=== PATIENT | female | born 1975 | race Caucasian/White ===

== ENCOUNTER 2016-09-05 14:41 | Inpatient (IN) ==
[2016-09-05 16:03] LABS: Amphetamine Screen,Urine Negative ng/mL (Cutoff=1000); Barbiturate Screen,Urine Negative ng/mL (Cutoff=200); Benzodiazepines Screen,Urine Positive ng/mL (Cutoff=200); Cannabinoid Screen,Urine Positive ng/mL (Cutoff = 50); Cocaine Screen,Urine Negative ng/mL (Cutoff= 300); Opiate Screen,Urine Negative ng/mL (Cutoff=300); Phencyclidine Screen,Urine Negative ng/mL (Cutoff=25)
[2016-09-05 16:09] LABS: Bilirubin,Urine Negative (Negative); Blood,Urine Trace (Negative); Clarity,Urine Clear (Clear); Color,Urine Yellow (Yellow); Glucose,Urine (UA) Normal (Normal); Ketones,Urine Negative (Negative); Leukocyte Esterase,Urine Negative (Negative); Nitrite,Urine Negative (Negative); PH,Urine 6.5 pH Units (5.0-8.0); Protein,Urine Trace mg/dL (Neg-Trace); Specific Gravity,Urine 1.017 (1.010-1.025); Urobilinogen,Urine Normal (Normal)
[2016-09-05 16:11] LABS: Bacteria,Urine Few per hpf (None-Few); Hyaline Casts,Urine None Seen per lpf (None-Few); Squamous Epithelial Cell,Urine Many per lpf (None-Few); WBC,Urine 0-3 per hpf (0-3)
[2016-09-05] MEDS ORDERED: Ketorolac 30 MG/ML VIAL IVP ONE (16:11)
[2016-09-05] MEDS ORDERED: 0.9 % Sodium Chloride 1,000 ML IVC ONE (16:11)
--- NOTE | 2016-09-05 16:17 | Emergency Department Note ---
Disposition Clinical Impression: Suicidal ideation, Facial cellulitis, Dental caries Disposition: Still a Patient Condition: Good Referrals: Eufemia Martinez, [employer] [Primary Care Provider] - Forms: ED Satisfaction Letter Time of Disposition: 22:34 Dental HPI - General Chief complaint: ED Psychiatric Symptoms Stated complaint: SI/dental pain Time Seen by Provider: 09/05/16 15:29 Source: patient Limitations: no limitations Nursing Notes Reviewed: Yes Vital Signs Reviewed: Yes - History of Present Illness HPI Narrative: 41 year old female who ahs been expeiencing left sided facial pain secondary to a denal abscsess which she has been trying to treat for the past 7 days with PO antbiotics. She finished her course and states that it is getting worse and she is having chills at home and becuse she hasnt been able to take her pysch medications she is now becoming more suicidal. Margienet states that she is also having difficutlt opening her mouth completely because of the pain and the swelling, although her tongue does not feel swollen to her and she is handling her secretions appropiately at bedside. Patient states that she could not get into her dentist for the removal and was advied to come to the ED for futher managment and possible CT of her face and more anitbiotic therapy. STates that is isl ocated on the left side of her left frontal jaw and tracks into her neck and is now causing her to have left ear pain. - Related Data Allergies Allergy/AdvReac Type Severity Reaction Status Date / Time hydrocodone Allergy Hives Verified 04/17/16 11:51 Penicillins [PCN] Allergy Hives Verified 06/18/15 13:18 Constitutional: Reports: chills. Denies: fever, weakness, weight change Eyes: Denies: eye pain, eye discharge, vision change ENT ED: Reports: ear pain, throat pain, dental pain. Denies: hearing loss, epistaxis, congestion, dysphagia Cardiovascular: Denies: chest pain, palpitations, dyspnea on exertion, edema, syncope Respiratory: Denies: cough, dyspnea, wheezes, hemoptysis, stridor Gastrointestinal: Denies: abdominal pain, nausea, vomiting, diarrhea, constipation, hematemesis, melena, hematochezia Genitourinary: Denies: dysuria, frequency, hematuria, discharge Musculoskeletal: Denies: back pain, arthralgia, myalgia Integumentary: Denies: rash, abrasion, lesions Neurological: Denies: headache, weakness, numbness, paresthesias, confusion, abnormal gait, vertigo Psychiatric: Reports: anxiety, depression, suicidal thoughts. Denies: homicidal thoughts, auditory hallucinations, visual hallucinations Past Medical History - Past Medical History Medical history: Reports: fibromyalgia, hypertension, RA Psychiatric history: Reports: anxiety, depression - Social History Smoking Status: Current every day smoker Smokeless Tobacco Status: No Alcohol use: Reports: none Drug use: Reports: none Physical Exam - General Limitations: no limitations General appearance: alert - Head Head exam: atraumatic, normocephalic, normal inspection - Eye Eye exam: Present: normal appearance, PERRL, EOMI - Expanded Eye Exam Pupils: Left: reactive - ENT ENT exam: normal exam, normal oropharynx, mucous membranes moist - Expanded ENT Exam External ear exam: Present: normal external inspection TM/Canal: Hemotympanum: Negative Nose exam: negative: nasal deviation, crepitus, septal hematoma Nasal speculum exam: Bilateral: normal Nose/Mouth: 1 - flunctuant pocket, with gingival swelling which tracks into back towards the left ear and under the chin. Mouth exam: Present: normal external inspection Teeth exam: Present: dental caries, fractured tooth #, dental tenderness #, gingival swelling 1 - Fractured, Dental Tenderness, Other (gingival swelling) Throat exam: Present: normal inspection - Neck Neck exam: Present: normal inspection, full ROM, trachea midline. Absent: meningismus, lymphadenopathy, thyromegaly - Chest Chest inspection: Present: normal inspection, symmetric chest wall rise - Respiratory Respiratory exam: Present: normal lung sounds bilaterally - Cardiovascular Cardiovascular exam: Present: normal rhythm, tachycardia, normal heart sounds - Abdominal Exam Abdominal exam: Present: soft, Non-Tender. Absent: tenderness, distention, guarding, rebound, rigidity - Extremities Exam Extremities exam: Present: normal inspection, full ROM. Absent: tenderness, pedal edema - Expanded Upper Extremity Exam Shoulder exam: Present: normal inspection, full ROM Arm exam: Present: normal inspection, full ROM Elbow exam: Present: normal inspection, full ROM Forearm/Wrist exam: Present: normal inspection, full ROM Hand exam: Present: normal inspection, full ROM Vascular exam: Normal: capillary refill, radial pulse - Expanded Lower Extremity Exam Hip/Pelvis exam: Present: normal inspection, full ROM Upper leg exam: Present: normal inspection, full ROM Knee exam: Present: normal inspection, full ROM Lower leg exam: Present: normal inspection, full ROM Ankle exam: Present: normal inspection, full ROM Foot/toe exam: Present: normal inspection, full ROM Neurovascular/Tendon exam: Absent: motor deficit, sensory deficit, tendon deficit - Back Exam Back exam: Present: normal inspection, full ROM. Absent: tenderness - Neurological Exam Neurological exam: Present: alert, oriented X3 - Expanded Neurological Exam Patient oriented to: Present: person, place, time Coma Scale Eye Opening: Spontaneous Coma Scale Motor Response: Obeys Commands Coma Scale Verbal Response: Oriented Coma Scale Total: 15 - Psychiatric Psychiatric exam: Present: depressed, anxious, suicidal ideation - Skin Skin exam: Present: warm, dry, intact, normal color Course Course Narrative: we will do a CT face with IV contrast and pysch workup. - Reevaluation(s) Reevaluation #1: updated patient on results. Patient states that she can tolerate PO at this time. WE will finish the IV ABX and do a swallow test. IF she can tolerate PO than we will switch to PO meds and consult 1A. IF she cannot then we will admit to the medicine service for facial cellulitis. Time: 19:53 Reevaluation #2: patine is medically cleared. able to swallow pills. 1A consulted. Time: 21:08 Reevaluation #3: will sign patient out to the night team. Likely patient will be admitted but does not have a bed at this facility. She will likely need to be transferred out to another facility. She has otherwise been stable and cooperate in the ED. Plan is to follow pysch reccs. She will need to continue azithro, flagyl therapy PO. Time: 22:34 Vital Signs Temperature 98.2 F 09/05/16 14:50 Pulse Rate 104 09/05/16 14:50 Respiratory Rate 18 09/05/16 14:50 Blood Pressure 118/84 09/05/16 14:50 O2 Sat by Pulse Oximetry 99 09/05/16 14:50 Temperature 98.2 F 09/05/16 14:50 Pulse Rate 78 09/05/16 19:52 Respiratory Rate 20 09/05/16 19:52 Blood Pressure 103/67 09/05/16 19:52 O2 Sat by Pulse Oximetry 96 09/05/16 19:52 Oxygen Delivery Oxygen Delivery Room Air Dental/Oral - Lab Data Result diagrams: 09/05/16 16:18 09/05/16 16:18 Lab Results 09/05/16 09/05/16 09/05/16 Range/Units 15:44 15:45 15:45 WBC (4.3-11.1) K/mcL RBC (3.82-4.97) M/mcL Hgb (11.5-15.4) g/dL Hct (35.3-44.9) % MCV (83.0-100.0) fL MCH (28.0-33.3) pg MCHC (31.6-35.5) g/dL RDW (11.5-14.5) % Plt Count (140-400) K/mcL MPV (9.4-12.4) fL Immature Gran % (0-4) % Seg Neutrophils % % Lymphocytes % % Monocytes % % Eosinophils % % Basophils % % Neutrophils # (1.6-8.9) K/mcL Lymphocytes # (0.6-4.6) K/mcL Monocytes # (0.0-1.3) K/mcL Eosinophils # (0.0-0.6) K/mcL Basophils # (0.0-0.2) K/mcL Immature Plt Fraction (1.1-6.1) % Sodium (136-145) mEq/L Potassium (3.5-4.5) mEq/L Chloride (98-109) mEq/L Carbon Dioxide (19-29) mEq/L BUN (7-20) mg/dL Creatinine (0.57-1.11) mg/dL Est GFR ( Amer) (> 60) Est GFR (Non-Af Amer) (> 60) BUN/Creatinine Ratio (6-26) Glucose (70-99) mg/dL Calculated Osmolality (280-300) Calcium (8.6-10.8) mg/dL Urine Color Yellow (Yellow) Urine Clarity Clear (Clear) Urine pH 6.5 (5.0-8.0) pH Units Ur Specific [place] 1.017 (1.010-1.025) Urine Protein Trace (Neg-Trace) mg/dL Urine Glucose (UA) Normal (Normal) mg/dL Urine Ketones Negative (Negative) mg/dL Urine Blood Trace H (Negative) Urine Nitrite Negative (Negative) Urine Bilirubin Negative (Negative) Urine Urobilinogen Normal (Normal) mg/dL Ur Leukocyte Esterase Negative (Negative) Urine Microscopic RBC 3-5 H (0-3) per hpf Urine Microscopic WBC 0-3 (0-3) per hpf Ur Squamous Epith Cells Many H (None-Few) per lpf Urine Bacteria Few (None-Few) per hpf Hyaline Casts None Seen (None-Few) per lpf Urine Test Negative (Negative) Salicylates (15-30) mg/dL Urine Opiates Screen Negative (Yhluqh=151) ng/mL Acetaminophen (10-30) mcg/mL Ur Barbiturates Screen Negative (Csrhqv=605) ng/mL Ur Phencyclidine Scrn Negative (Cutoff=25) ng/mL Ur Amphetamines Screen Negative (Ofteol=9128) ng/mL U Benzodiazepines Scrn Positive H (Fhhigx=678) ng/mL Urine Cocaine Screen Negative (Cutoff= 300) ng/mL U Marijuana (THC) Screen Positive H (Cutoff = 50) ng/mL Ethyl Alcohol (0-10) mg/dL 09/05/16 09/05/16 Range/Units 16:18 16:18 WBC 13.9 H (4.3-11.1) K/mcL RBC 4.59 (3.82-4.97) M/mcL Hgb 14.6 (11.5-15.4) g/dL Hct 42.6 (35.3-44.9) % MCV 92.8 (83.0-100.0) fL MCH 31.8 (28.0-33.3) pg MCHC 34.3 (31.6-35.5) g/dL RDW 13.6 (11.5-14.5) % Plt Count 319 (140-400) K/mcL MPV 9.9 (9.4-12.4) fL Immature Gran % 0.4 (0-4) % Seg Neutrophils % 70.7 % Lymphocytes % 20.4 % Monocytes % 6.9 % Eosinophils % 1.2 % Basophils % 0.4 % Neutrophils # 9.8 H (1.6-8.9) K/mcL Lymphocytes # 2.8 (0.6-4.6) K/mcL Monocytes # 1.0 (0.0-1.3) K/mcL Eosinophils # 0.2 (0.0-0.6) K/mcL Basophils # 0.1 (0.0-0.2) K/mcL Immature Plt Fraction 4.5 (1.1-6.1) % Sodium 139 (136-145) mEq/L Potassium 3.9 (3.5-4.5) mEq/L Chloride 103 (98-109) mEq/L Carbon Dioxide 25 (19-29) mEq/L BUN 8 (7-20) mg/dL Creatinine 0.87 (0.57-1.11) mg/dL Est GFR ( Amer) > 60 (> 60) Est GFR (Non-Af Amer) > 60 (> 60) BUN/Creatinine Ratio 9 (6-26) Glucose 119 H (70-99) mg/dL Calculated Osmolality 283 (280-300) Calcium 10.0 (8.6-10.8) mg/dL Urine Color (Yellow) Urine Clarity (Clear) Urine pH (5.0-8.0) pH Units Ur Specific [place] (1.010-1.025) Urine Protein (Neg-Trace) mg/dL Urine Glucose (UA) (Normal) mg/dL Urine Ketones (Negative) mg/dL Urine Blood (Negative) Urine Nitrite (Negative) Urine Bilirubin (Negative) Urine Urobilinogen (Normal) mg/dL Ur Leukocyte Esterase (Negative) Urine Microscopic RBC (0-3) per hpf Urine Microscopic WBC (0-3) per hpf Ur Squamous Epith Cells (None-Few) per lpf Urine Bacteria (None-Few) per hpf Hyaline Casts (None-Few) per lpf Urine Test (Negative) Salicylates < 5.0 L (15-30) mg/dL Urine Opiates Screen (Itefon=406) ng/mL Acetaminophen < 1.0 L (10-30) mcg/mL Ur Barbiturates Screen (Gwoceo=880) ng/mL Ur Phencyclidine Scrn (Cutoff=25) ng/mL Ur Amphetamines Screen (Ibnovh=8757) ng/mL U Benzodiazepines Scrn (Nsjcwx=601) ng/mL Urine Cocaine Screen (Cutoff= 300) ng/mL U Marijuana (THC) Screen (Cutoff = 50) ng/mL Ethyl Alcohol < 10 (0-10) mg/dL
[2016-09-05 16:24] LABS: Basophils # 0.1 K/mcL (0.0-0.2); Basophils % 0.4 %; Eosinophils # 0.2 K/mcL (0.0-0.6); Eosinophils % 1.2 %; Hematocrit 42.6 % (35.3-44.9); Hemoglobin 14.6 g/dL (11.5-15.4); Immature Granulocytes % 0.4 % (0-4); Immature Platelets 4.5 % (1.1-6.1); Lymphocytes # 2.8 K/mcL (0.6-4.6); Lymphocytes % 20.4 %; Mean Corpuscular HGB Conc 34.3 g/dL (31.6-35.5); Mean Corpuscular Hemoglobin 31.8 pg (28.0-33.3); Mean Corpuscular Volume 92.8 fL (83.0-100.0); Mean Platelet Volume 9.9 fL (9.4-12.4); Monocytes % 6.9 %; Neutrophils # 9.8 K/mcL (1.6-8.9); Platelet Count 319 K/mcL (140-400); Red Blood Count 4.59 M/mcL (3.82-4.97); Red Cell Distribution Width 13.6 % (11.5-14.5); Segmented Neutrophils % 70.7 %
[2016-09-05 16:38] LABS: BUN/Creatinine Ratio 9 (6-26); Blood Urea Nitrogen 8 mg/dL (7-20); Carbon Dioxide 25 mEq/L (19-29); Glucose 119 mg/dL (70-99); eGFR For African Americans > 60 (> 60); eGFR For Non-African Americans > 60 (> 60)
--- NOTE | 2016-09-05 16:40 | Emergency Department Note ---
Disposition Clinical Impression: Suicidal ideation, Facial cellulitis, Dental caries Disposition: Still a Patient Condition: Good Referrals: Eufemia Martinez [employer] [Primary Care Provider] - Forms: ED Satisfaction Letter General Adult HPI - General Chief complaint: ED Psychiatric Symptoms Stated complaint: SI/dental pain Time Seen by Provider: 09/05/16 15:29 Source: patient Limitations: no limitations - History of Present Illness Pain Scale: 10 - Related Data Allergies Allergy/AdvReac Type Severity Reaction Status Date / Time hydrocodone Allergy Hives Verified 04/17/16 11:51 Penicillins [PCN] Allergy Hives Verified 06/18/15 13:18 Constitutional: Reports: chills. Denies: fever, weakness, weight change Eyes: Denies: eye pain, eye discharge, vision change ENT ED: Reports: ear pain, throat pain, dental pain. Denies: hearing loss, epistaxis, congestion, dysphagia Cardiovascular: Denies: chest pain, palpitations, dyspnea on exertion, edema, syncope Respiratory: Denies: cough, dyspnea, wheezes, hemoptysis, stridor Gastrointestinal: Denies: abdominal pain, nausea, vomiting, diarrhea, constipation, hematemesis, melena, hematochezia Genitourinary: Denies: dysuria, frequency, hematuria, discharge Musculoskeletal: Denies: back pain, arthralgia, myalgia Integumentary: Denies: rash, abrasion, lesions Neurological: Denies: headache, weakness, numbness, paresthesias, confusion, abnormal gait, vertigo Psychiatric: Reports: anxiety, depression, suicidal thoughts. Denies: homicidal thoughts, auditory hallucinations, visual hallucinations Past Medical History - Past Medical History Medical history: Reports: fibromyalgia, hypertension, RA Psychiatric history: Reports: anxiety, depression - Social History Smoking Status: Current every day smoker Smokeless Tobacco Status: No Alcohol use: Reports: none Drug use: Reports: none Physical Exam - General Limitations: no limitations General appearance: alert Course - Reevaluation(s) Reevaluation #1: I saw the patient with the resident, Dr. Knight. Patient presents with 2 problems. First problem is a dental abscess that she has been dealing with. It has not responded to a course of clindamycin. She is allergic to penicillin. She states that she has been off her psych medicines as well and now she feels depressed and suicidal. Examining her face she has a lot of swelling. She does not have any of her teeth on the left hand side until you get to the lateral incisor and that happens to be a tooth that hurts. That is where the bulk of the abscess is. She has full range of motion in the neck. We will work her up to evaluate the extent of this abscess. Once she is medically cleared and will talk to psychiatry. Time: 16:40 Vital Signs Temperature 98.2 F 09/05/16 14:50 Pulse Rate 104 09/05/16 14:50 Respiratory Rate 18 09/05/16 14:50 Blood Pressure 118/84 09/05/16 14:50 O2 Sat by Pulse Oximetry 99 09/05/16 14:50 Temperature 98.2 F 09/05/16 14:50 Pulse Rate 78 09/05/16 19:52 Respiratory Rate 20 09/05/16 19:52 Blood Pressure 103/67 09/05/16 19:52 O2 Sat by Pulse Oximetry 96 09/05/16 19:52 Oxygen Delivery Oxygen Delivery Room Air Medical Decision Making - Lab Data Result diagrams: 09/05/16 16:18 09/05/16 16:18 Lab Results 09/05/16 09/05/16 09/05/16 Range/Units 15:44 15:45 15:45 WBC (4.3-11.1) K/mcL RBC (3.82-4.97) M/mcL Hgb (11.5-15.4) g/dL Hct (35.3-44.9) % MCV (83.0-100.0) fL MCH (28.0-33.3) pg MCHC (31.6-35.5) g/dL RDW (11.5-14.5) % Plt Count (140-400) K/mcL MPV (9.4-12.4) fL Immature Gran % (0-4) % Seg Neutrophils % % Lymphocytes % % Monocytes % % Eosinophils % % Basophils % % Neutrophils # (1.6-8.9) K/mcL Lymphocytes # (0.6-4.6) K/mcL Monocytes # (0.0-1.3) K/mcL Eosinophils # (0.0-0.6) K/mcL Basophils # (0.0-0.2) K/mcL Immature Plt Fraction (1.1-6.1) % Sodium (136-145) mEq/L Potassium (3.5-4.5) mEq/L Chloride (98-109) mEq/L Carbon Dioxide (19-29) mEq/L BUN (7-20) mg/dL Creatinine (0.57-1.11) mg/dL Est GFR ( Amer) (> 60) Est GFR (Non-Af Amer) (> 60) BUN/Creatinine Ratio (6-26) Glucose (70-99) mg/dL Calculated Osmolality (280-300) Calcium (8.6-10.8) mg/dL Urine Color Yellow (Yellow) Urine Clarity Clear (Clear) Urine pH 6.5 (5.0-8.0) pH Units Ur Specific [place] 1.017 (1.010-1.025) Urine Protein Trace (Neg-Trace) mg/dL Urine Glucose (UA) Normal (Normal) mg/dL Urine Ketones Negative (Negative) mg/dL Urine Blood Trace H (Negative) Urine Nitrite Negative (Negative) Urine Bilirubin Negative (Negative) Urine Urobilinogen Normal (Normal) mg/dL Ur Leukocyte Esterase Negative (Negative) Urine Microscopic RBC 3-5 H (0-3) per hpf Urine Microscopic WBC 0-3 (0-3) per hpf Ur Squamous Epith Cells Many H (None-Few) per lpf Urine Bacteria Few (None-Few) per hpf Hyaline Casts None Seen (None-Few) per lpf Urine Test Negative (Negative) Salicylates (15-30) mg/dL Urine Opiates Screen Negative (Kggawg=823) ng/mL Acetaminophen (10-30) mcg/mL Ur Barbiturates Screen Negative (Mrjhhs=513) ng/mL Ur Phencyclidine Scrn Negative (Cutoff=25) ng/mL Ur Amphetamines Screen Negative (Iebbcn=9452) ng/mL U Benzodiazepines Scrn Positive H (Ehgqlm=716) ng/mL Urine Cocaine Screen Negative (Cutoff= 300) ng/mL U Marijuana (THC) Screen Positive H (Cutoff = 50) ng/mL Ethyl Alcohol (0-10) mg/dL 17 09/05/16 Range/Units 16:18 16:18 WBC 13.9 H (4.3-11.1) K/mcL RBC 4.59 (3.82-4.97) M/mcL Hgb 14.6 (11.5-15.4) g/dL Hct 42.6 (35.3-44.9) % MCV 92.8 (83.0-100.0) fL MCH 31.8 (28.0-33.3) pg MCHC 34.3 (31.6-35.5) g/dL RDW 13.6 (11.5-14.5) % Plt Count 319 (140-400) K/mcL MPV 9.9 (9.4-12.4) fL Immature Gran % 0.4 (0-4) % Seg Neutrophils % 70.7 % Lymphocytes % 20.4 % Monocytes % 6.9 % Eosinophils % 1.2 % Basophils % 0.4 % Neutrophils # 9.8 H (1.6-8.9) K/mcL Lymphocytes # 2.8 (0.6-4.6) K/mcL Monocytes # 1.0 (0.0-1.3) K/mcL Eosinophils # 0.2 (0.0-0.6) K/mcL Basophils # 0.1 (0.0-0.2) K/mcL Immature Plt Fraction 4.5 (1.1-6.1) % Sodium 139 (136-145) mEq/L Potassium 3.9 (3.5-4.5) mEq/L Chloride 103 (98-109) mEq/L Carbon Dioxide 25 (19-29) mEq/L BUN 8 (7-20) mg/dL Creatinine 0.87 (0.57-1.11) mg/dL Est GFR ( Amer) > 60 (> 60) Est GFR (Non-Af Amer) > 60 (> 60) BUN/Creatinine Ratio 9 (6-26) Glucose 119 H (70-99) mg/dL Calculated Osmolality 283 (280-300) Calcium 10.0 (8.6-10.8) mg/dL Urine Color (Yellow) Urine Clarity (Clear) Urine pH (5.0-8.0) pH Units Ur Specific [place] (1.010-1.025) Urine Protein (Neg-Trace) mg/dL Urine Glucose (UA) (Normal) mg/dL Urine Ketones (Negative) mg/dL Urine Blood (Negative) Urine Nitrite (Negative) Urine Bilirubin (Negative) Urine Urobilinogen (Normal) mg/dL Ur Leukocyte Esterase (Negative) Urine Microscopic RBC (0-3) per hpf Urine Microscopic WBC (0-3) per hpf Ur Squamous Epith Cells (None-Few) per lpf Urine Bacteria (None-Few) per hpf Hyaline Casts (None-Few) per lpf Urine Test (Negative) Salicylates < 5.0 L (15-30) mg/dL Urine Opiates Screen (Ljxkzc=178) ng/mL Acetaminophen < 1.0 L (10-30) mcg/mL Ur Barbiturates Screen (Uiuaqi=452) ng/mL Ur Phencyclidine Scrn (Cutoff=25) ng/mL Ur Amphetamines Screen (Vnluaa=2734) ng/mL U Benzodiazepines Scrn (Vwzfap=287) ng/mL Urine Cocaine Screen (Cutoff= 300) ng/mL U Marijuana (THC) Screen (Cutoff = 50) ng/mL Ethyl Alcohol < 10 (0-10) mg/dL Attestation Statement - Attestation Attestation: I, Dr. Rodriguez, examined this patient [id number] and my medical decision- making was reviewed with Dr. Knight, Resident Physician. I agree with the documented findings, disposition and treatment plan as described except to the extent set forth below. Please see my progress notes for details.
[2016-09-05 16:42] LABS: Acetaminophen < 1.0 mcg/mL (10-30); Ethanol < 10 mg/dL (0-10); Salicylate < 5.0 mg/dL (15-30)
[2016-09-05] MEDS ORDERED: MetroNIDAZOLE 500 MG/100 ML 500 MG/100 ML BAG IVPB ONE (17:11)
[2016-09-05] MEDS ORDERED: Azithromycin 500 MG in D5% in Water 250 ML IVPB ONE (17:11)
[2016-09-05 17:57] LABS: Chloride 103 mEq/L (98-109); Potassium 3.9 mEq/L (3.5-4.5); Sodium 139 mEq/L (136-145)
[2016-09-05 17:58] LABS: Osmolality,Calculated 283 (280-300)
[2016-09-06] MEDS ORDERED: Ketorolac 30 MG/ML VIAL IVP ONE (01:52)
--- NOTE | 2016-09-06 02:11 | Emergency Department Note ---
Disposition Clinical Impression: Suicidal ideation, Facial cellulitis, Dental caries Disposition: Still a Patient Condition: Good Referrals: Eufemia Martinez SALES PROGRAM MANAGER [Primary Care Provider] - Forms: ED Satisfaction Letter Psych HPI - General Chief Complaint: ED Psychiatric Symptoms Stated Complaint: SI/dental pain Time Seen by Provider: 09/05/16 15:29 Source: patient - Related Data Allergies Allergy/AdvReac Type Severity Reaction Status Date / Time hydrocodone Allergy Hives Verified 04/17/16 11:51 Penicillins [PCN] Allergy Hives Verified 06/18/15 13:18 Constitutional: Reports: chills. Denies: fever, weakness, weight change Eyes: Denies: eye pain, eye discharge, vision change ENT ED: Reports: ear pain, throat pain, dental pain. Denies: hearing loss, epistaxis, congestion, dysphagia Cardiovascular: Denies: chest pain, palpitations, dyspnea on exertion, edema, syncope Respiratory: Denies: cough, dyspnea, wheezes, hemoptysis, stridor Gastrointestinal: Denies: abdominal pain, nausea, vomiting, diarrhea, constipation, hematemesis, melena, hematochezia Genitourinary: Denies: dysuria, frequency, hematuria, discharge Musculoskeletal: Denies: back pain, arthralgia, myalgia Integumentary: Denies: rash, abrasion, lesions Neurological: Denies: headache, weakness, numbness, paresthesias, confusion, abnormal gait, vertigo Psychiatric: Reports: anxiety, depression, suicidal thoughts. Denies: homicidal thoughts, auditory hallucinations, visual hallucinations Past Medical History - Past Medical History Medical history: Reports: fibromyalgia, hypertension, RA Psychiatric history: Reports: anxiety, depression - Social History Smoking Status: Current every day smoker Smokeless Tobacco Status: No Alcohol use: Reports: none Drug use: Reports: none Physical Exam - General Limitations: no limitations General appearance: alert Course Vital Signs Temperature 98.2 F 09/05/16 14:50 Pulse Rate 104 09/05/16 14:50 Respiratory Rate 18 09/05/16 14:50 Blood Pressure 118/84 09/05/16 14:50 O2 Sat by Pulse Oximetry 99 09/05/16 14:50 Temperature 98.2 F 09/05/16 14:50 Pulse Rate 80 09/06/16 05:20 Respiratory Rate 20 09/06/16 05:20 Blood Pressure 121/78 09/06/16 05:20 O2 Sat by Pulse Oximetry 96 09/06/16 05:20 Oxygen Delivery Oxygen Delivery Room Air Psych - Lab Data Result diagrams: 09/05/16 16:18 09/05/16 16:18 Lab Results 09/05/16 09/05/16 09/05/16 Range/Units 15:44 15:45 15:45 WBC (4.3-11.1) K/mcL RBC (3.82-4.97) M/mcL Hgb (11.5-15.4) g/dL Hct (35.3-44.9) % MCV (83.0-100.0) fL MCH (28.0-33.3) pg MCHC (31.6-35.5) g/dL RDW (11.5-14.5) % Plt Count (140-400) K/mcL MPV (9.4-12.4) fL Immature Gran % (0-4) % Seg Neutrophils % % Lymphocytes % % Monocytes % % Eosinophils % % Basophils % % Neutrophils # (1.6-8.9) K/mcL Lymphocytes # (0.6-4.6) K/mcL Monocytes # (0.0-1.3) K/mcL Eosinophils # (0.0-0.6) K/mcL Basophils # (0.0-0.2) K/mcL Immature Plt Fraction (1.1-6.1) % Sodium (136-145) mEq/L Potassium (3.5-4.5) mEq/L Chloride (98-109) mEq/L Carbon Dioxide (19-29) mEq/L BUN (7-20) mg/dL Creatinine (0.57-1.11) mg/dL Est GFR ( Amer) (> 60) Est GFR (Non-Af Amer) (> 60) BUN/Creatinine Ratio (6-26) Glucose (70-99) mg/dL Calculated Osmolality (280-300) Calcium (8.6-10.8) mg/dL Urine Color Yellow (Yellow) Urine Clarity Clear (Clear) Urine pH 6.5 (5.0-8.0) pH Units Ur Specific [place] 1.017 (1.010-1.025) Urine Protein Trace (Neg-Trace) mg/dL Urine Glucose (UA) Normal (Normal) mg/dL Urine Ketones Negative (Negative) mg/dL Urine Blood Trace H (Negative) Urine Nitrite Negative (Negative) Urine Bilirubin Negative (Negative) Urine Urobilinogen Normal (Normal) mg/dL Ur Leukocyte Esterase Negative (Negative) Urine Microscopic RBC 3-5 H (0-3) per hpf Urine Microscopic WBC 0-3 (0-3) per hpf Ur Squamous Epith Cells Many H (None-Few) per lpf Urine Bacteria Few (None-Few) per hpf Hyaline Casts None Seen (None-Few) per lpf Urine Test Negative (Negative) Salicylates (15-30) mg/dL Urine Opiates Screen Negative (Axvcsg=115) ng/mL Acetaminophen (10-30) mcg/mL Ur Barbiturates Screen Negative (Dbriqs=058) ng/mL Ur Phencyclidine Scrn Negative (Cutoff=25) ng/mL Ur Amphetamines Screen Negative (Ohptbo=2880) ng/mL U Benzodiazepines Scrn Positive H (Xgenld=935) ng/mL Urine Cocaine Screen Negative (Cutoff= 300) ng/mL U Marijuana (THC) Screen Positive H (Cutoff = 50) ng/mL Ethyl Alcohol (0-10) mg/dL 09/05/16 09/05/16 Range/Units 16:18 16:18 WBC 13.9 H (4.3-11.1) K/mcL RBC 4.59 (3.82-4.97) M/mcL Hgb 14.6 (11.5-15.4) g/dL Hct 42.6 (35.3-44.9) % MCV 92.8 (83.0-100.0) fL MCH 31.8 (28.0-33.3) pg MCHC 34.3 (31.6-35.5) g/dL RDW 13.6 (11.5-14.5) % Plt Count 319 (140-400) K/mcL MPV 9.9 (9.4-12.4) fL Immature Gran % 0.4 (0-4) % Seg Neutrophils % 70.7 % Lymphocytes % 20.4 % Monocytes % 6.9 % Eosinophils % 1.2 % Basophils % 0.4 % Neutrophils # 9.8 H (1.6-8.9) K/mcL Lymphocytes # 2.8 (0.6-4.6) K/mcL Monocytes # 1.0 (0.0-1.3) K/mcL Eosinophils # 0.2 (0.0-0.6) K/mcL Basophils # 0.1 (0.0-0.2) K/mcL Immature Plt Fraction 4.5 (1.1-6.1) % Sodium 139 (136-145) mEq/L Potassium 3.9 (3.5-4.5) mEq/L Chloride 103 (98-109) mEq/L Carbon Dioxide 25 (19-29) mEq/L BUN 8 (7-20) mg/dL Creatinine 0.87 (0.57-1.11) mg/dL Est GFR ( Amer) > 60 (> 60) Est GFR (Non-Af Amer) > 60 (> 60) BUN/Creatinine Ratio 9 (6-26) Glucose 119 H (70-99) mg/dL Calculated Osmolality 283 (280-300) Calcium 10.0 (8.6-10.8) mg/dL Urine Color (Yellow) Urine Clarity (Clear) Urine pH (5.0-8.0) pH Units Ur Specific [place] (1.010-1.025) Urine Protein (Neg-Trace) mg/dL Urine Glucose (UA) (Normal) mg/dL Urine Ketones (Negative) mg/dL Urine Blood (Negative) Urine Nitrite (Negative) Urine Bilirubin (Negative) Urine Urobilinogen (Normal) mg/dL Ur Leukocyte Esterase (Negative) Urine Microscopic RBC (0-3) per hpf Urine Microscopic WBC (0-3) per hpf Ur Squamous Epith Cells (None-Few) per lpf Urine Bacteria (None-Few) per hpf Hyaline Casts (None-Few) per lpf Urine Test (Negative) Salicylates < 5.0 L (15-30) mg/dL Urine Opiates Screen (Ypxqzr=745) ng/mL Acetaminophen < 1.0 L (10-30) mcg/mL Ur Barbiturates Screen (Jbycsq=606) ng/mL Ur Phencyclidine Scrn (Cutoff=25) ng/mL Ur Amphetamines Screen (Ubwrmr=9161) ng/mL U Benzodiazepines Scrn (Wymzwh=263) ng/mL Urine Cocaine Screen (Cutoff= 300) ng/mL U Marijuana (THC) Screen (Cutoff = 50) ng/mL Ethyl Alcohol < 10 (0-10) mg/dL Psychiatric Medical Clearance - Medical Clearance Checklist Medical History: No Social History Section defined Current Vitals: Last Vital Signs Temp 98.2 F 09/05/16 14:50 Pulse 80 09/06/16 05:20 Resp 20 09/06/16 05:20 BP 121/78 09/06/16 05:20 Pulse Ox 96 09/06/16 05:20 Psychiatric Lab Panel: Drug Levels and Toxicity 09/05/16 09/05/16 15:44 16:18 Urine Opiates Screen Negative Acetaminophen < 1.0 L Ur Barbiturates Screen Negative Ur Phencyclidine Scrn Negative Ur Amphetamines Screen Negative U Benzodiazepines Scrn Positive H Urine Cocaine Screen Negative U Marijuana (THC) Screen Positive H Ethyl Alcohol < 10 Abnormal Labs: Abnormal lab results WBC 13.9 K/mcL (4.3-11.1) H 09/05/16 16:18 Neutrophils # 9.8 K/mcL (1.6-8.9) H 09/05/16 16:18 Glucose 119 mg/dL (70-99) H 09/05/16 16:18 Urine Blood Trace (Negative) H 09/05/16 15:45 Urine Microscopic RBC 3-5 per hpf (0-3) H 09/05/16 15:45 Ur Squamous Epith Cells Many per lpf (None-Few) H 09/05/16 15:45 Salicylates < 5.0 mg/dL (15-30) L 09/05/16 16:18 Acetaminophen < 1.0 mcg/mL (10-30) L 09/05/16 16:18 U Benzodiazepines Scrn Positive ng/mL (Lfbhik=296) H 09/05/16 15:44 U Marijuana (THC) Screen Positive ng/mL (Cutoff = 50) H 09/05/16 15:44 Attestation Statement - Attestation Attestation: I personally interviewed and examined this patient and my medical decision- making was reviewed with the ED Resident Physician, Dr. Ayala. I agree with the documented findings, disposition and treatment plan as described except to the extent set forth below. Patient is a 41-year-old white female who presented to the emergency department with suicidal ideation as well as dental pain. Patient was signed out to us by Dr. Rodriguez, waiting psychiatric placement at [facility]. Patient remained resting comfortably throughout her ED course with no complaints. Patient received antibiotics for her dental pain as well as Tylenol. On evaluation patient is here stating that she has been having trouble taking her medications over the last 3 days which she takes for depression and has been having suicidal thoughts since that time. Patient has been having suicidal thoughts but no distinct plan. Patient has been medically cleared prior to sign out R team and is awaiting placement at [facility] at this time. She has had no change in her condition or status while awaiting placement.
--- NOTE | 2016-09-06 07:45 | Emergency Department Note ---
Disposition Clinical Impression: Suicidal ideation, Facial cellulitis, Dental caries Disposition: Still a Patient Condition: Good Referrals: Eufemia Martinez SPACE BUYER [Primary Care Provider] - Forms: ED Satisfaction Letter General Adult HPI - General Chief complaint: ED Psychiatric Symptoms Stated complaint: SI/dental pain Time Seen by Provider: 09/05/16 15:29 Source: patient Limitations: no limitations Nursing Notes Reviewed: Yes Vital Signs Reviewed: Yes - History of Present Illness Pain Scale: 0 - Related Data Allergies Allergy/AdvReac Type Severity Reaction Status Date / Time hydrocodone Allergy Hives Verified 04/17/16 11:51 Penicillins [PCN] Allergy Hives Verified 06/18/15 13:18 Constitutional: Reports: chills. Denies: fever, weakness, weight change Eyes: Denies: eye pain, eye discharge, vision change ENT ED: Reports: ear pain, throat pain, dental pain. Denies: hearing loss, epistaxis, congestion, dysphagia Cardiovascular: Denies: chest pain, palpitations, dyspnea on exertion, edema, syncope Respiratory: Denies: cough, dyspnea, wheezes, hemoptysis, stridor Gastrointestinal: Denies: abdominal pain, nausea, vomiting, diarrhea, constipation, hematemesis, melena, hematochezia Genitourinary: Denies: dysuria, frequency, hematuria, discharge Musculoskeletal: Denies: back pain, arthralgia, myalgia Integumentary: Denies: rash, abrasion, lesions Neurological: Denies: headache, weakness, numbness, paresthesias, confusion, abnormal gait, vertigo Psychiatric: Reports: anxiety, depression, suicidal thoughts. Denies: homicidal thoughts, auditory hallucinations, visual hallucinations Past Medical History - Past Medical History Medical history: Reports: fibromyalgia, hypertension, RA Psychiatric history: Reports: anxiety, depression - Social History Smoking Status: Current every day smoker Smokeless Tobacco Status: No Alcohol use: Reports: none Drug use: Reports: none Physical Exam - General Limitations: no limitations General appearance: alert Course Vital Signs Temperature 98.2 F 09/05/16 14:50 Pulse Rate 104 09/05/16 14:50 Respiratory Rate 18 09/05/16 14:50 Blood Pressure 118/84 09/05/16 14:50 O2 Sat by Pulse Oximetry 99 09/05/16 14:50 Temperature 98.2 F 09/05/16 14:50 Pulse Rate 80 09/06/16 05:20 Respiratory Rate 20 09/06/16 05:20 Blood Pressure 121/78 09/06/16 05:20 O2 Sat by Pulse Oximetry 96 09/06/16 05:20 Oxygen Delivery Oxygen Delivery Room Air Medical Decision Making - MDM Narrative Medical decision making narrative: I examined this patient and my medical decision-making was reviewed with the LIQUEFIED NATURAL GAS OPERATOR/PA/Advanced Practice Nurse/Resident Physician. I agree with the documented findings, disposition and treatment plan as described except to the extent set forth below. Patient will was a signout from the evening ER physician Dr. Joaquín Sorto. Patient has been evaluated 1A is awaiting placement. patient's been cooperative here. Spoke to her about if she needs something while she is here she needs breakfast or anything like that to let us know. She is under 72 hour hold at this time. - Lab Data Result diagrams: 09/05/16 16:18 09/05/16 16:18 Lab Results 09/05/16 09/05/16 09/05/16 Range/Units 15:44 15:45 15:45 WBC (4.3-11.1) K/mcL RBC (3.82-4.97) M/mcL Hgb (11.5-15.4) g/dL Hct (35.3-44.9) % MCV (83.0-100.0) fL MCH (28.0-33.3) pg MCHC (31.6-35.5) g/dL RDW (11.5-14.5) % Plt Count (140-400) K/mcL MPV (9.4-12.4) fL Immature Gran % (0-4) % Seg Neutrophils % % Lymphocytes % % Monocytes % % Eosinophils % % Basophils % % Neutrophils # (1.6-8.9) K/mcL Lymphocytes # (0.6-4.6) K/mcL Monocytes # (0.0-1.3) K/mcL Eosinophils # (0.0-0.6) K/mcL Basophils # (0.0-0.2) K/mcL Immature Plt Fraction (1.1-6.1) % Sodium (136-145) mEq/L Potassium (3.5-4.5) mEq/L Chloride (98-109) mEq/L Carbon Dioxide (19-29) mEq/L BUN (7-20) mg/dL Creatinine (0.57-1.11) mg/dL Est GFR ( Amer) (> 60) Est GFR (Non-Af Amer) (> 60) BUN/Creatinine Ratio (6-26) Glucose (70-99) mg/dL Calculated Osmolality (280-300) Calcium (8.6-10.8) mg/dL Urine Color Yellow (Yellow) Urine Clarity Clear (Clear) Urine pH 6.5 (5.0-8.0) pH Units Ur Specific [place] 1.017 (1.010-1.025) Urine Protein Trace (Neg-Trace) mg/dL Urine Glucose (UA) Normal (Normal) mg/dL Urine Ketones Negative (Negative) mg/dL Urine Blood Trace H (Negative) Urine Nitrite Negative (Negative) Urine Bilirubin Negative (Negative) Urine Urobilinogen Normal (Normal) mg/dL Ur Leukocyte Esterase Negative (Negative) Urine Microscopic RBC 3-5 H (0-3) per hpf Urine Microscopic WBC 0-3 (0-3) per hpf Ur Squamous Epith Cells Many H (None-Few) per lpf Urine Bacteria Few (None-Few) per hpf Hyaline Casts None Seen (None-Few) per lpf Urine Test Negative (Negative) Salicylates (15-30) mg/dL Urine Opiates Screen Negative (Qrtgdy=482) ng/mL Acetaminophen (10-30) mcg/mL Ur Barbiturates Screen Negative (Dhywip=521) ng/mL Ur Phencyclidine Scrn Negative (Cutoff=25) ng/mL Ur Amphetamines Screen Negative (Bdqoxx=2916) ng/mL U Benzodiazepines Scrn Positive H (Qdkiwj=084) ng/mL Urine Cocaine Screen Negative (Cutoff= 300) ng/mL U Marijuana (THC) Screen Positive H (Cutoff = 50) ng/mL Ethyl Alcohol (0-10) mg/dL 09/05/16 09/05/16 Range/Units 16:18 16:18 WBC 13.9 H (4.3-11.1) K/mcL RBC 4.59 (3.82-4.97) M/mcL Hgb 14.6 (11.5-15.4) g/dL Hct 42.6 (35.3-44.9) % MCV 92.8 (83.0-100.0) fL MCH 31.8 (28.0-33.3) pg MCHC 34.3 (31.6-35.5) g/dL RDW 13.6 (11.5-14.5) % Plt Count 319 (140-400) K/mcL MPV 9.9 (9.4-12.4) fL Immature Gran % 0.4 (0-4) % Seg Neutrophils % 70.7 % Lymphocytes % 20.4 % Monocytes % 6.9 % Eosinophils % 1.2 % Basophils % 0.4 % Neutrophils # 9.8 H (1.6-8.9) K/mcL Lymphocytes # 2.8 (0.6-4.6) K/mcL Monocytes # 1.0 (0.0-1.3) K/mcL Eosinophils # 0.2 (0.0-0.6) K/mcL Basophils # 0.1 (0.0-0.2) K/mcL Immature Plt Fraction 4.5 (1.1-6.1) % Sodium 139 (136-145) mEq/L Potassium 3.9 (3.5-4.5) mEq/L Chloride 103 (98-109) mEq/L Carbon Dioxide 25 (19-29) mEq/L BUN 8 (7-20) mg/dL Creatinine 0.87 (0.57-1.11) mg/dL Est GFR ( Amer) > 60 (> 60) Est GFR (Non-Af Amer) > 60 (> 60) BUN/Creatinine Ratio 9 (6-26) Glucose 119 H (70-99) mg/dL Calculated Osmolality 283 (280-300) Calcium 10.0 (8.6-10.8) mg/dL Urine Color (Yellow) Urine Clarity (Clear) Urine pH (5.0-8.0) pH Units Ur Specific [place] (1.010-1.025) Urine Protein (Neg-Trace) mg/dL Urine Glucose (UA) (Normal) mg/dL Urine Ketones (Negative) mg/dL Urine Blood (Negative) Urine Nitrite (Negative) Urine Bilirubin (Negative) Urine Urobilinogen (Normal) mg/dL Ur Leukocyte Esterase (Negative) Urine Microscopic RBC (0-3) per hpf Urine Microscopic WBC (0-3) per hpf Ur Squamous Epith Cells (None-Few) per lpf Urine Bacteria (None-Few) per hpf Hyaline Casts (None-Few) per lpf Urine Test (Negative) Salicylates < 5.0 L (15-30) mg/dL Urine Opiates Screen (Bobzhw=587) ng/mL Acetaminophen < 1.0 L (10-30) mcg/mL Ur Barbiturates Screen (Kalxpx=819) ng/mL Ur Phencyclidine Scrn (Cutoff=25) ng/mL Ur Amphetamines Screen (Bcuakn=2904) ng/mL U Benzodiazepines Scrn (Qscilt=217) ng/mL Urine Cocaine Screen (Cutoff= 300) ng/mL U Marijuana (THC) Screen (Cutoff = 50) ng/mL Ethyl Alcohol < 10 (0-10) mg/dL
--- NOTE | 2016-09-06 12:29 | Electrocardiograph Report ---
[address] [address] Test Date: 2016-09-06 Pat Name: Liza Pace Department: 105 Room: 1A Gender: F Athletic Events Scorer: TR : 1975 Requested By: Mika Ayala Order Number: [id number] Reading MD: Felix Jack MD Measurements Intervals [place] Rate: 94 P: 56 MO: 168 QRS: 43 QRSD: 94 T: 27 QT: 373 QTc: 424 Interpretive Statements SINUS RHYTHM BASELINE ARTIFACT Electronically Signed On 09-06-2016 12:27:34 EDT by Felix Jack MD
[2016-09-06] MEDS ORDERED: clonazePAM 1 MG TABLET PO PRN (13:05)
[2016-09-06] MEDS ORDERED: Haloperidol Lactate 5 MG/ML VIAL IM PRN (13:34)
[2016-09-06] MEDS ORDERED: MOM Conc 10 ML UD.LIQ PO PRN (13:34)
[2016-09-06] MEDS ORDERED: Mag Hydrox/Al Hydrox/Simeth 30 ML UDC PO PRN (13:34)
[2016-09-06] MEDS ORDERED: traZODone 50 MG TABLET PO PRN (13:34)
[2016-09-06] MEDS ORDERED: *HR* LORazepam 1 MG TABLET PO PRN (13:34)
[2016-09-06] MEDS ORDERED: hydrOXYzine pamoate 25 MG CAPSULE PO PRN (13:34)
[2016-09-06] MEDS ORDERED: *HR* LORazepam 2 MG/ML VIAL IM PRN (13:34)
[2016-09-06] MEDS: Nicotine 21 MG PATCH.TD24 TD SCH (14:19)
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
[2016-09-06] MEDS: Gabapentin 400 MG CAPSULE PO SCH ×2 (15:40→21:36)
[2016-09-06] MEDS: clonazePAM 1 MG TABLET PO PRN ×2 (15:52→22:29)
[2016-09-06] MEDS: Azithromycin 250 MG TABLET PO SCH (15:59)
[2016-09-06] MEDS: Acetaminophen 325 MG TABLET PO PRN (21:31)
[2016-09-06] MEDS: *HR* Metformin 500 MG TABLET PO SCH (21:44)
[2016-09-07] MEDS: Azithromycin 250 MG TABLET PO SCH (09:29)
[2016-09-07] MEDS: Lisinopril 20 MG TABLET PO SCH (09:30)
[2016-09-07] MEDS: Nicotine 21 MG PATCH.TD24 TD SCH (09:30)
[2016-09-07] MEDS: Gabapentin 400 MG CAPSULE PO SCH ×3 (09:30→20:39)
[2016-09-07] MEDS: clonazePAM 1 MG TABLET PO PRN ×2 (10:28→19:45)
[2016-09-07] MEDS: Acetaminophen 325 MG TABLET PO PRN (10:55)
--- NOTE | 2016-09-07 15:40 | Psychiatry Progress Note ---
Date of Encounter: 09/07/16 Time of Encounter: 15:38 Subjective Interval history: Patient is seen for follow-up. She reports feeling better on increased medication, her sleep improved and she has less pain in her mouth. She denies suicidal ideation. She attends groups and activities and her discharge plans are finalized by the social media content specialist. She denies any side effects of medication. Review of Systems Psychiatric: Reports: depression, anxiety, suicidal ideation Objective: Exam Patient orientation: Yes Person, Yes Time, Yes Place Level of alertness: Alert Patient appearance: Appropriate, Well Groomed, Obese Behavior: calm, cooperative Psychomotor activity: Normal Eye contact: Maintains Eye Contact Mood description: Depressed, Anxious Affect description: congruent with mood, constricted Speech pattern: Normal rate, Normal rhythm, Normal tone Speech volume: Normal Thought process: Linear, Goal Oriented Thought content: No Suicidal ideation, No Homicidal ideation, No Overt delusions Perceptual disturbances: No Auditory hallucinations, No Visual hallucinations Judgment: Fair Insight: Partial Results - Vital Signs Vital Signs: Temp Pulse Resp BP Pulse Ox 97.2 F L 96 16 138/99 96 09/07/16 09:00 09/07/16 09:00 09/07/16 09:00 09/07/16 09:00 09/06/16 08:08 - Labs Labs: Laboratory Results - last 24 hr 09/06/16 09/06/16 09/07/16 20:11 21:43 07:26 POC Glucose 113 H 115 H TSH 2.903 Assessment and Plan (1) Bipolar disorder current episode depressed Current visit: Yes Status: Acute Risks, benefits, side effects, alternatives discussed w/pt: Yes Patient agreeable to treatment: Yes Qualifiers: Psychotic features: without psychotic features Qualified Code(s): F31.4 - Bipolar disorder, current episode depressed, severe, without psychotic features (2) Tetrahydrocannabinol (THC) use disorder, moderate, dependence Current visit: Yes Status: Acute Risks, benefits, side effects, alternatives discussed w/pt: Yes Patient agreeable to treatment: Yes Consult Discharge Plan - Plan Referrals: [facility] [Outside] (The above appointment is with psychiatric prescriber, Please arrive 30 minutes early for this appointment to complete paperwork. You may contact the office regularly to check for cancellations that may allow you to be seen sooner by the psychiatric prescriber. Office staff will contact you directly to schedule your intake appointment for counseling and case management services. ) Eufemia Martinez, SATYA [Advanced Practice Nurse] - 09/11/16 5:20 pm (The above appointment is with Eufemia Martinez.)
[2016-09-07] MEDS ORDERED: Artificial Tears SOLN 15 ML BOTTLE BOTH EYES PRN (15:54)
[2016-09-07] MEDS: *HR* Metformin 500 MG TABLET PO SCH (20:39)
[2016-09-08] MEDS: clonazePAM 1 MG TABLET PO PRN ×3 (07:19→20:24)
[2016-09-08] MEDS: Gabapentin 400 MG CAPSULE PO SCH ×3 (08:33→20:17)
[2016-09-08] MEDS: Nicotine 21 MG PATCH.TD24 TD SCH (08:34)
[2016-09-08] MEDS: Azithromycin 250 MG TABLET PO SCH (08:34)
[2016-09-08] MEDS: Lisinopril 20 MG TABLET PO SCH (08:35)
[2016-09-08] MEDS: Acetaminophen 325 MG TABLET PO PRN (11:44)
[2016-09-08] MEDS: Ibuprofen 400 MG TABLET PO PRN (15:30)
--- NOTE | 2016-09-08 15:57 | Psychiatry Progress Note ---
Date of Encounter: 09/08/16 Time of Encounter: 15:30 Subjective Interval history: Patient seen for follow-up. She reports improvement in sleep and anxiety. She is less depressed and started attending groups. She denies any suicidal ideation and motivated to do more activities. Review of Systems Psychiatric: Reports: depression, anxiety, suicidal ideation Objective: Exam Patient orientation: Yes Person, Yes Time, Yes Place Level of alertness: Alert Patient appearance: Appropriate, Well Groomed, Obese Behavior: calm, cooperative Psychomotor activity: Normal Eye contact: Maintains Eye Contact Mood description: Depressed, Anxious Affect description: congruent with mood, full range Speech pattern: Normal rate, Normal rhythm, Normal tone Speech volume: Normal Thought process: Linear, Goal Oriented Thought content: No Suicidal ideation, No Homicidal ideation, No Overt delusions Perceptual disturbances: No Auditory hallucinations, No Visual hallucinations Judgment: Fair Insight: Partial Results - Vital Signs Vital Signs: Temp Pulse Resp BP Pulse Ox 98.1 F 79 18 114/88 96 09/08/16 09:00 09/08/16 09:00 09/08/16 09:00 09/08/16 09:00 09/06/16 08:08 - Labs Labs: Laboratory Results - last 24 hr 09/07/16 09/08/16 20:44 07:14 POC Glucose 118 H 110 H Assessment and Plan (1) Bipolar disorder current episode depressed Current visit: Yes Status: Acute Plan: Continue hospitalization, Close observation, Suicide Precautions per unit protocol, Encourage participation in unit milieu, Group Therapy, Monitor sleep, Monitor appetite Risks, benefits, side effects, alternatives discussed w/pt: Yes Patient agreeable to treatment: Yes Qualifiers: Psychotic features: without psychotic features Qualified Code(s): F31.4 - Bipolar disorder, current episode depressed, severe, without psychotic features (2) Tetrahydrocannabinol (THC) use disorder, moderate, dependence Current visit: Yes Status: Acute Plan: Continue hospitalization, Close observation, Suicide Precautions per unit protocol, Encourage participation in unit milieu, Group Therapy, Monitor sleep, Monitor appetite Risks, benefits, side effects, alternatives discussed w/pt: Yes Patient agreeable to treatment: Yes Consult Discharge Plan - Plan Referrals: [facility] [Outside] - 10/24/16 1:30 pm (The above appointment is with psychiatric prescriber, Chrisitane West. Please arrive 30 minutes early for this appointment to complete paperwork. You may contact the office regularly to check for cancellations that may allow you to be seen sooner by the psychiatric prescriber. Office staff will contact you directly to schedule your intake appointment for counseling and case management services. ) Eufemia Martinez CNP [Advanced Practice Nurse] - 09/11/16 5:20 pm (The above appointment is with Eufemia Martinez.)
[2016-09-08] MEDS: *HR* Metformin 500 MG TABLET PO SCH (20:18)
[2016-09-09] MEDS: Acetaminophen 325 MG TABLET PO PRN ×2 (07:50→16:36)
[2016-09-09] MEDS: Nicotine 21 MG PATCH.TD24 TD SCH (08:22)
[2016-09-09] MEDS: clonazePAM 1 MG TABLET PO PRN ×3 (08:23→21:12)
[2016-09-09] MEDS: Azithromycin 250 MG TABLET PO SCH (08:23)
[2016-09-09] MEDS: Lisinopril 20 MG TABLET PO SCH (08:23)
[2016-09-09] MEDS: Gabapentin 400 MG CAPSULE PO SCH ×3 (08:24→21:13)
--- NOTE | 2016-09-09 15:31 | Psychiatry Progress Note ---
Date of Encounter: 09/09/16 Time of Encounter: 15:00 Subjective Interval history: Patient is seen for follow-up. She reports having on and off suicidal thoughts but denies any plans. She believes her medication changes are helpful and she has been sleeping better. I had a long discussion was her regarding motivation and activities and self improvement and she seemed to be receptive and planning to make changes to her daily activities and to start putting efforts for self- improvement. Review of Systems Psychiatric: Reports: depression, anxiety, suicidal ideation Objective: Exam Patient orientation: Yes Person, Yes Time, Yes Place Level of alertness: Alert Patient appearance: Appropriate, Well Groomed, Obese Behavior: calm, cooperative, tearful Psychomotor activity: Slowed Eye contact: Maintains Eye Contact Mood description: Depressed, Anxious Affect description: congruent with mood, constricted Speech pattern: Normal rate, Normal rhythm, Normal tone Speech volume: Normal Thought process: Linear, Goal Oriented Thought content: Yes Suicidal ideation, No Homicidal ideation, No Overt delusions Perceptual disturbances: No Auditory hallucinations, No Visual hallucinations Judgment: Fair Insight: Partial Results - Vital Signs Vital Signs: Temp Pulse Resp BP Pulse Ox 97.3 F L 66 16 118/83 96 09/09/16 09:00 09/09/16 09:00 09/09/16 09:00 09/09/16 09:00 09/06/16 08:08 - Labs Labs: Laboratory Results - last 24 hr 09/08/16 09/09/16 20:26 07:14 POC Glucose 96 H 112 H Assessment and Plan (1) Bipolar disorder current episode depressed Current visit: Yes Status: Acute Plan: Continue hospitalization, Close observation, Suicide Precautions per unit protocol, Encourage participation in unit milieu, Group Therapy, Monitor sleep, Monitor appetite Risks, benefits, side effects, alternatives discussed w/pt: Yes Patient agreeable to treatment: Yes Qualifiers: Psychotic features: without psychotic features Qualified Code(s): F31.4 - Bipolar disorder, current episode depressed, severe, without psychotic features (2) Tetrahydrocannabinol (THC) use disorder, moderate, dependence Current visit: Yes Status: Acute Plan: Continue hospitalization, Close observation, Suicide Precautions per unit protocol, Encourage participation in unit milieu, Group Therapy, Monitor sleep, Monitor appetite Risks, benefits, side effects, alternatives discussed w/pt: Yes Patient agreeable to treatment: Yes Consult Discharge Plan - Plan Referrals: [facility] [Outside] - 10/24/16 1:30 pm (The above appointment is with psychiatric prescriber, Chrsitiane West. Please arrive 30 minutes early for this appointment to complete paperwork. You may contact the office regularly to check for cancellations that may allow you to be seen sooner by the psychiatric prescriber. Office staff will contact you directly to schedule your intake appointment for counseling and case management services. ) Eufemia Martinez, INGOT CAR OPERATOR [Advanced Practice Nurse] - 09/11/16 5:20 pm (The above appointment is with Eufemia Martinez.)
[2016-09-09] MEDS: Ibuprofen 400 MG TABLET PO PRN (21:12)
[2016-09-09] MEDS: *HR* Metformin 500 MG TABLET PO SCH (21:13)
[2016-09-10] MEDS: Nicotine 21 MG PATCH.TD24 TD SCH (08:44)
[2016-09-10] MEDS: Lisinopril 20 MG TABLET PO SCH (08:45)
[2016-09-10] MEDS: clonazePAM 1 MG TABLET PO PRN ×3 (08:45→21:21)
[2016-09-10] MEDS: Acetaminophen 325 MG TABLET PO PRN (08:45)
[2016-09-10] MEDS: Gabapentin 400 MG CAPSULE PO SCH ×3 (08:46→21:22)
--- NOTE | 2016-09-10 15:36 | Psychiatry Progress Note ---
Date of Encounter: 09/10/16 Time of Encounter: 15:00 Subjective Interval history: Patient is seen for follow-up. Staff report she continue to report suicidal ideation but she described it as less frequent and less intense. She presented today emotional and crying and reporting to me that she received a phone call from her family that she is not accepted back at home. She feels frustrated and upset since she has no home to go to. I discussed with her that her discharge plan would be reviewed tomorrow with social work job titles and discuss with her available options also to help start application for disability and housing assistance if eligible. She was able to calm down and denied any feeling of hopelessness at this time and she is maintaining her medication without any problems. Review of Systems Psychiatric: Reports: depression, anxiety, suicidal ideation Objective: Exam Patient orientation: Yes Person, Yes Time, Yes Place Level of alertness: Alert Patient appearance: Appropriate, Well Groomed, Obese Behavior: cooperative, nervous, anxious, tearful Psychomotor activity: Normal Eye contact: Minimal Contact Mood description: Depressed, Anxious Affect description: congruent with mood, constricted Speech pattern: Normal rate, Normal rhythm, Normal tone Speech volume: Normal Thought process: Linear, Goal Oriented Thought content: Yes Suicidal ideation, No Homicidal ideation, No Overt delusions Perceptual disturbances: No Auditory hallucinations, No Visual hallucinations Judgment: Fair Insight: Partial Results - Vital Signs Vital Signs: Temp Pulse Resp BP Pulse Ox 96.8 F L 66 16 118/80 96 09/10/16 09:00 09/10/16 09:00 09/10/16 09:00 09/10/16 09:00 09/06/16 08:08 - Labs Labs: Laboratory Results - last 24 hr 09/09/16 09/10/16 21:17 06:45 POC Glucose 120 H 105 H Assessment and Plan (1) Bipolar disorder current episode depressed Current visit: Yes Status: Acute Plan: Continue hospitalization, Close observation, Suicide Precautions per unit protocol, Encourage participation in unit milieu, Group Therapy, Monitor sleep, Monitor appetite Risks, benefits, side effects, alternatives discussed w/pt: Yes Patient agreeable to treatment: Yes Qualifiers: Psychotic features: without psychotic features Qualified Code(s): F31.4 - Bipolar disorder, current episode depressed, severe, without psychotic features (2) Tetrahydrocannabinol (THC) use disorder, moderate, dependence Current visit: Yes Status: Acute Plan: Continue hospitalization, Close observation, Suicide Precautions per unit protocol, Encourage participation in unit milieu, Group Therapy, Monitor sleep, Monitor appetite Risks, benefits, side effects, alternatives discussed w/pt: Yes Patient agreeable to treatment: Yes Consult Discharge Plan - Plan Referrals: [facility] [Outside] - 10/24/16 1:30 pm (The above appointment is with psychiatric prescriber, Christiane West. Please arrive 30 minutes early for this appointment to complete paperwork. You may contact the office regularly to check for cancellations that may allow you to be seen sooner by the psychiatric prescriber. Office staff will contact you directly to schedule your intake appointment for counseling and case management services. ) Eufemia Martinez, SENSITIZED PAPER TESTER [Advanced Practice Nurse] - 09/11/16 5:20 pm (The above appointment is with Eufemia Martinez.)
[2016-09-10] MEDS: *HR* Metformin 500 MG TABLET PO SCH (21:21)
[2016-09-11] MEDS: clonazePAM 1 MG TABLET PO PRN ×3 (08:26→20:11)
[2016-09-11] MEDS: Gabapentin 400 MG CAPSULE PO SCH ×3 (08:27→20:11)
[2016-09-11] MEDS: Nicotine 21 MG PATCH.TD24 TD SCH (08:27)
[2016-09-11] MEDS: Lisinopril 20 MG TABLET PO SCH (08:27)
[2016-09-11] MEDS: Acetaminophen 325 MG TABLET PO PRN (11:30)
--- NOTE | 2016-09-11 15:23 | Psychiatry Progress Note ---
Date of Encounter: 09/11/16 Time of Encounter: 15:00 Subjective Interval history: Patient is seen for follow-up. She reports feeling suicidal on and off on documentation by the nursing staff, she is concerned about her discharge plans and did not sure about where she will go. I discussed this issue was a delinquency prevention social worker and treatment team and she is working was a patient on alternative discharge plans. Review of Systems Psychiatric: Reports: depression, anxiety, suicidal ideation Objective: Exam Patient orientation: Yes Person, Yes Time, Yes Place Level of alertness: Alert Patient appearance: Appropriate, Well Groomed, Obese Behavior: calm, cooperative Psychomotor activity: Slowed Eye contact: Maintains Eye Contact Mood description: Euthymic/stable, Depressed, Anxious Affect description: congruent with mood, constricted Speech pattern: Normal rate, Normal rhythm, Normal tone Speech volume: Normal Thought process: Linear, Goal Oriented Thought content: Yes Suicidal ideation, No Homicidal ideation, No Overt delusions Perceptual disturbances: No Auditory hallucinations, No Visual hallucinations Judgment: Fair Insight: Partial Results - Vital Signs Vital Signs: Temp Pulse Resp BP Pulse Ox 97 F L 93 16 110/82 96 09/11/16 09:00 09/11/16 09:00 09/11/16 09:00 09/11/16 09:00 09/06/16 08:08 - Labs Labs: Laboratory Results - last 24 hr 09/10/16 09/11/16 21:20 06:51 POC Glucose 185 H 114 H Assessment and Plan (1) Bipolar disorder current episode depressed Current visit: Yes Status: Acute Plan: Continue hospitalization, Close observation, Suicide Precautions per unit protocol, Encourage participation in unit milieu, Group Therapy, Monitor sleep, Monitor appetite Risks, benefits, side effects, alternatives discussed w/pt: Yes Patient agreeable to treatment: Yes Qualifiers: Psychotic features: without psychotic features Qualified Code(s): F31.4 - Bipolar disorder, current episode depressed, severe, without psychotic features (2) Tetrahydrocannabinol (THC) use disorder, moderate, dependence Current visit: Yes Status: Acute Plan: Continue hospitalization, Close observation, Suicide Precautions per unit protocol, Encourage participation in unit milieu, Group Therapy, Monitor sleep, Monitor appetite Risks, benefits, side effects, alternatives discussed w/pt: Yes Patient agreeable to treatment: Yes Consult Discharge Plan - Plan Referrals: [facility] [Outside] - 10/24/16 1:30 pm (The above appointment is with psychiatric prescriber, Christiane West. Please arrive 30 minutes early for this appointment to complete paperwork. You may contact the office regularly to check for cancellations that may allow you to be seen sooner by the psychiatric prescriber. Office staff will contact you directly to schedule your intake appointment for counseling and case management services. ) Eufemia Martinez, RESIDENT CARE COORDINATOR [Advanced Practice Nurse] - 09/18/16 4:00 pm (The above appointment is with Eufemia Martinez.)
[2016-09-11] MEDS: *HR* Metformin 500 MG TABLET PO SCH (20:11)
[2016-09-12] MEDS: Nicotine 21 MG PATCH.TD24 TD SCH (08:47)
[2016-09-12] MEDS: Gabapentin 400 MG CAPSULE PO SCH ×2 (08:47→14:06)
[2016-09-12] MEDS: Lisinopril 20 MG TABLET PO SCH (08:48)
[2016-09-12 09:04] VITALS: BP 104/74
[2016-09-12] MEDS: clonazePAM 1 MG TABLET PO PRN ×2 (09:04→14:06)
[2016-09-12] MEDS: Acetaminophen 325 MG TABLET PO PRN (09:56)
--- NOTE | 2016-09-12 12:56 | Discharge Summary ---
Date of Encounter: 09/12/16 Time of Encounter: 12:54 Diagnosis - Discharge Diagnosis (1) Bipolar disorder current episode depressed Priority: Primary Status: Acute Qualifiers: Psychotic features: without psychotic features Qualified Code(s): F31.4 - Bipolar disorder, current episode depressed, severe, without psychotic features (2) Tetrahydrocannabinol (THC) use disorder, moderate, dependence Priority: Secondary Status: Acute Medications - Discharge Medications Prescriptions: ClonazePAM [Klonopin] 1 mg PO TID PRN #30 tablet PRN Reason: Anxiety Duloxetine [Cymbalta] 60 mg PO BID #60 capsule. Amitriptyline [Elavil] 100 mg PO HS 09/06/16 [History] Buprenorphine HCl [Subutex] 16 mg SL DAILY 09/06/16 [History] Gabapentin [Neurontin] 800 mg PO TID 09/06/16 [History] Lisinopril [Zestril] 20 mg PO DAILY 09/06/16 [History] Metformin [Glucophage] 500 mg PO HS 09/06/16 [History] Omeprazole [PriLOSEC] 20 mg PO DAILY 09/06/16 [History] Zolpidem [Ambien] 10 mg PO HS 09/06/16 [History] ClonazePAM [Klonopin] 1 mg PO TID PRN #30 tablet 09/12/16 [Rx] Duloxetine [Cymbalta] 60 mg PO BID #60 capsule. 09/12/16 [Rx] Levothyroxine [Synthroid] 50 mcg PO 0630 tablet 09/12/16 [Rx] Allergies hydrocodone Allergy (Verified 04/17/16 11:51) Hives Penicillins [PCN] Allergy (Verified 06/18/15 13:18) Hives Results Procedures and tests throughout hospitalization: Completed Lab Orders Category Date Time Status TSH [Thyroid Stimulating Hormone] Routine Lab 09/06/16 20:11 Completed Provider Date of admission: 09/06/16 08:43 Primary care physician: PCP NO Discharging clinician: Jaron Weeks Assessment and Plan - Patient/Caregiver Discharge Instructions Activity: resume usual activities as tolerated Diet: regular diet - Follow up Plan Follow up with: [facility] [Outside] - 10/24/16 1:30 pm (The above appointment is with psychiatric prescriber, Christiane West. Please arrive 30 minutes early for this appointment to complete paperwork. You may contact the office regularly to check for cancellations that may allow you to be seen sooner by the psychiatric prescriber. Office staff will contact you directly to schedule your intake appointment for counseling and case management services. ) Eufemia Martinez, MILK PROCESSING WORKER [Advanced Practice Nurse] - 09/18/16 4:00 pm (The above appointment is with Eufemia Martinez.) Functional capacity at discharge: independent ambulation Overall status at discharge: Stable Disposition: Home, Self-Care Hospital Course Hospital course: Ms. Pace is a 41 year old female admitted from the emergency room for depression and suicidal ideation. For details admission please see H&P 1 the units patient was started on her medication, Cymbalta was increased from 60-120 mg daily and Klonopin was reduced from 2 mg to 1 mg 3 times a day as needed. Patient responded well to medication changes she reported improved sleep and improve level of energy she was isolating herself initially then she started attending groups and activities. Her blood sugar was well maintained. She denied any suicidal ideation prior to discharge. She was educated about activities and motivation and she plans to increase her activity level after discharge. Discharge plans follow-up were completed by the director social welfare. - Time Spent with Patient Total time spent providing and/or coordinating discharge services: Less than 30 minutes Quality - Multiple Antipsychotics Patient discharged on 2 or more antipsychotic medications: No Procedures - Procedures Procedures: Medication Management, Crisis Stabilization, Supportive Therapy, Group Therapy, Psychoeducational Therapy Mental Status Exam - Mental Status Exam Patient orientation: Yes Person, Yes Time, Yes Place Level of alertness: Alert Patient appearance: Appropriate, Well Groomed, Obese Behavior: calm, cooperative Psychomotor activity: Normal Eye contact: Maintains Eye Contact Mood description: Euthymic/stable Affect description: congruent with mood, full range Speech pattern: Normal rate, Normal rhythm, Normal tone Speech Volume: Normal Thought process: Linear, Goal Oriented Thought Content: No Suicidal ideation, No Homicidal ideation, No Overt delusions Perceptual Disturbances: No Auditory hallucinations, No Visual hallucinations Judgment: Limited Insight: Partial
== END 2016-09-12 14:05 | disposition home or self-care (01) | DRG 753 ==
LOC: EMEROO 14:41 → 1ANU 09-06 08:43
PROVIDERS: ADMIT Psychiatry & Neurology Psychiatry; ATTEND Psychiatry & Neurology Psychiatry

== ENCOUNTER 2016-10-11 22:06 | Inpatient (IN) ==
[2016-10-11] MEDS ORDERED: 0.9 % Sodium Chloride 1,000 ML IV.SOLN IVC ONE (22:19)
[2016-10-11] MEDS ORDERED: *HR* Vecuronium 10 MG VIAL IVP ONE (23:15)
[2016-10-11] MEDS ORDERED: FentaNYL (PF) 1,000 MCG in 0.9 % Sodium Chloride 80 ML IVPB ONE (23:15)
[2016-10-12] MEDS ORDERED: Magnesium Sulfate 2 GM in D5% in Water 100 ML IVPB ONE (06:57)
[2016-10-12] MEDS ORDERED: *HR* Etomidate 20 MG/10 ML AMPUL IVP ONE (06:57)
[2016-10-12] MEDS ORDERED: *HR* Succinylcholine 200 MG/10 ML VIAL IVP ONE (06:57)
[2016-10-12] MEDS ORDERED: Thiamine (B-1) 100 MG TABLET PO ONE (06:57)
[2016-10-12] MEDS ORDERED: Chlorhexidine Rinse 15 ML MOUTHWASH PO ONE (09:00)
[2016-10-12] MEDS ORDERED: Acetaminophen 325 MG TABLET PO PRN (17:00)
[2016-10-12] MEDS ORDERED: Naloxone 0.4 MG/ML INJ IVP PRN (17:00)
[2016-10-12] MEDS ORDERED: Ondansetron ODT 4 MG TAB.RAPDIS SL PRN (17:00)
--- NOTE | 2016-10-12 17:48 | Pulmonology Consult Note ---
<Eli Craig - Last Filed: 10/12/16 18:10> Date of Encounter: 10/12/16 Time of Encounter: 17:40 Assessment and Plan (1) Unresponsive episode Current Visit: Yes Status: Acute Patient found unresponsive by police. She is now extubated. Drowsy and oriented to person, place and situation. Cause of unresponsive episode is unknown. Initial head CT negative. UDS + for benzos and patient found with empty bottles of klonopin, gabapentin and suboxone around her. She denies overdose intentional or otherwise. She denies other drug use. Patient also reports history of seizures. Concerned that it might be secondary to an overdose as she is especially drowsy or possibly a seizure. - Supportive care - Consult to psych - Consult to neurology (2) Acute respiratory failure Current Visit: Yes Status: Resolved Patient seymour acute respiratory failure requiring intubation in ED - resolved. Now extubated and not requiring any supplemental oxygen. - Supplemental O2 if needed Qualifiers: Respiratory failure complication: unspecified whether with hypoxia or hypercapnia Qualified Code(s): J96.00 - Acute respiratory failure, unspecified whether with hypoxia or hypercapnia (3) Elevated ETOH level Current Visit: Yes Status: Acute Patient with elevated EtOH level on admission. She reports that she does not drink often. Patient started on thiamine because unsure how accurate that is. CIWA not ordered at the moment, will monitor patient but she may require CIWA protocol. Qualifiers: Blood alcohol level: 40-59 mg/100 ml Qualified Code(s): Y90.2 - Blood alcohol level of 40-59 mg/100 ml (4) History of suicide attempt Current Visit: Yes Status: Acute Patient has a history of 3 suicide attempts. She reports that this was not a suicide attempt and she denies any suicidal ideation at this time. Consult placed to psych because of patients history. - Psych consult (5) History of seizures Current Visit: Yes Status: Acute Patient reports a history of seizures not on any medications or seeing a neurologist. Will get an EEG and consult neurology. - Consult to neuro - EEG (6) Acute kidney injury Current Visit: Yes Status: Acute Patient with acute kidney injury on admission - improving. Creatinine 1.16 today from 1.37. - Monitor kidney function and urine output (7) DVT prophylaxis Current Visit: Yes Status: Acute Heparin for DVT ppx Neuro: Now awake and alert. Possible overdose? Also reported history of seizures. Consult to neuro, EEG Pulm: Extubated, no acute concerns Cardiac: No acute concerns Gi/Fluids/Electrolytes: Swallow eval. Clear liquid diet. Advance as tolerate Renal: RAFAT improving ID: No acute concerns Heme/Onc: heparin for dvt ppx Endocrine: restarted home metforming. low intensity SSI ACHS Dispo: Transfer out of ICU History of Present Illness Consult date: 10/12/16 Reason for consult: other (ICU care) Chief complaint: Found unresponsive History of present illness: Ms. Liza Pace is a 42yo female admitted to the ICU last night after being found unconscious by police Report states patient was found unresponsive with multiple empty pill container around her including Klonopin, gabapentin, and Suboxone. A bottle of Klonopin 2 mg tablets were brought with the patient that was filled on for 90 tablets. On pill count, there were 52 tablets remaining in the bottle. No other bottles were brought in. On review of [facility], patient has prescription recently filled for Klonopin, gabapentin, and cymbalta. patient has not filled a prescription for Suboxone since the beginning of August. This morning on exam , patient was intubated and following commands. she tolerated CPAP trial and was successfully extubated. After patient patient was awake, alert, and oriented. She reports that last night she was drinking alcohol and she took one tablet of Neurontin an d one tablet of Klonopin. She denies any other drug use. She states that this was not a suicide attempt. Though she has had 3 suicide attempts in the past. Patient reports a history of seizures as a child that started again in the last several months. She is not on any medications for them and has not seen a neurologist. She reports her last seizure was 2 weeks ago. She says she gets "twitchy" before they happen and she remembers feelling like that last night. Patient says she will sometimes bite her tongue but denies any loss of bowel or bladder. She reports that other people say she thrashes around when she has one. Past Med Surg Social Fam HX - Past Medical History Medical history: diabetes, fibromyalgia, hypertension, migraine, RA, renal disease, seizures, thyroid disease Psychiatric history: anxiety, bipolar, PTSD, prior suicide attempt, previous psychiatric hospitalization - Past Surgical History Surgical History: cholecystectomy, hysterectomy - Social History Smoking Status: Current every day smoker Smokeless Tobacco Status: No Alcohol use: none Drug use: marijuana Medications and Allergies Amitriptyline [Elavil] 100 mg PO HS 09/06/16 [History] Buprenorphine HCl [Subutex] 16 mg SL DAILY 09/06/16 [History] Gabapentin [Neurontin] 800 mg PO TID 09/06/16 [History] Lisinopril [Zestril] 20 mg PO DAILY 09/06/16 [History] Omeprazole [PriLOSEC] 20 mg PO DAILY 09/06/16 [History] Zolpidem [Ambien] 10 mg PO HS 09/06/16 [History] metFORMIN [Glucophage] 500 mg PO HS 09/06/16 [History] Levothyroxine [Synthroid] 50 mcg PO 0630 tablet 09/12/16 [Rx] Cholecalciferol (D-3) [Vitamin D] 1,000 unit PO DAILY 10/12/16 [History] DULoxetine [Cymbalta] 90 mg PO DAILY 10/12/16 [History] clonazePAM [Klonopin] 2 mg PO TID PRN 10/12/16 [History] Allergies hydrocodone Allergy (Verified 04/17/16 11:51) Hives Penicillins [PCN] Allergy (Verified 06/18/15 13:18) Hives All Systems: A 10-system review of systems was performed and is negative for pertinent findings except as documented above in the HPI. - Constitutional Constitutional: no fatigue, no headache(s) (s) - EENT Nose, mouth and throat: no dizziness, no headache(s) - Cardiovascular Cardiovascular: no chest pain, no palpitations - Respiratory Respiratory: no cough, no dyspnea, no wheezing - Gastrointestinal Gastrointestinal: no abdominal pain - Musculoskeletal Musculoskeletal: back pain - Neurological Neurological: no confusion, no dizziness, no weakness - Psychiatric Psychiatric: anxiety, depression Physical Examination Vital Signs: Vital Signs, Last 4 Hours Temp Pulse Resp BP Pulse Ox 10/12/16 15:57 98.3 F 69 16 102/64 94 General appearance: no acute distress Eyes: nonicteric ENT: oropharynx moist Effort: normal Inspection: normal Auscultation: bilateral: clear Cardiovascular: regular rate and rhythm Gastrointestinal: soft, non-tender, non-distended Integumentary: normal Extremities: no cyanosis, no edema, no clubbing normal mental status, non-focal exam mood appropriate, affect normal Results - Clinical Findings Intake & Output: Intake & Output 10/12/16 10/12/16 10/12/16 07:59 15:59 23:59 Weight 100.6 kg Consult Discharge Plan - Plan Referrals: Eufemia Martinez, TRAIN GATE ATTENDANT [Primary Care Provider] - <Quinton Suggs - Last Filed: 10/13/16 07:26> Date of Encounter: 10/13/16 Past Med Surg Social Fam HX - Family History Mother Adopted: [place]: Esme Living Status: Age at : 56 Cause of : Liver cancer Hx Family Cardiac Disorders: Yes Hx Family Respiratory Disorders: Yes Hx Family Cancer: Yes Hx Family GI Disorders: No Hx Family Genitourinary Disorders: No Hx Family Endocrine Disorder: No Hx Family Musculoskeletal Disorders: No Hx Family Neuromuscular Disorders: No Hx Family Neurologic Disorders: No Hx Family HEENT Disorders: No Hx Family Autoimmune Disorders: No Hx Family Reproductive Disorders: No Hx Family Psychosocial Disorders: No Hx Family Medical Disorders: No All Systems: A 10-system review of systems was performed and is negative for pertinent findings except as documented above in the HPI. Results - Laboratory Findings CBC and BMP: 10/13/16 04:32 10/13/16 04:32 Abnormal lab findings: Abnormal lab results RBC 3.81 M/mcL (3.82-4.97) L 10/13/16 04:32 Glucose 114 mg/dL (70-99) H 10/13/16 04:32 POC Glucose 108 (58-89) H 10/12/16 21:15 - Clinical Findings Intake & Output: Intake & Output 10/12/16 10/12/16 10/13/16 15:59 23:59 07:59 Intake Total 480 / 480 450 / 450 Output Total 1150 / 1150 550 / 550 300 / 300 Balance -670 / -670 -100 / -100 -300 / -300 Weight 100.6 kg - Attending Attestation Attending addendum: The patient was seen and examined with the house staff on 10/12/2016. I agree with the resident note with the following addendum: 1. Acute respiratory failure 2. Encephalopathy 3. Acute renal failure 4. Drug overdose Acute respiratory failure in the setting of failure to protect the airway from encephalopathy related to unresponsivness. Patient is doing well on spontaneous breathing trial with improved mental status this morning with plans for extubation. CT scan of the head was unremarkable. Initial concern for drug overdose but seizre also of concern. Will consult neurology for evaluation of recent recurrent seizures. Acute renal failure of unclear etiology. Urine output is adequate, and creatinine is improving with IV fluid hydration. Unclear if this was an intentional overdose with suicide attempt, we will have psychiatry evaluate the patient after extubation.
[2016-10-12] MEDS ORDERED: D5% in Water 1,000 ML IVC PRN (17:58)
[2016-10-12] MEDS ORDERED: Dextrose Gel 15 GM PO PRN ×2 (17:58)
[2016-10-12] MEDS ORDERED: *HR* Dextrose 50 % in Water (Syg) 50 ML SYRINGE IVP PRN (17:58)
[2016-10-12] MEDS: *HR* Heparin 5,000 UNIT/ML VIAL SQ SCH (20:53)
[2016-10-12] MEDS: clonazePAM 1 MG TABLET PO PRN (20:53)
[2016-10-12] MEDS ORDERED: Insulin LISPRO 300 UNITS/3 ML VIAL SQ SCH (21:00)
[2016-10-12] MEDS ORDERED: *HR* Metformin 500 MG TABLET PO SCH (21:00)
--- NOTE | 2016-10-13 00:46 | Internal Med History&Physical ---
<Rene Dave - Last Filed: 10/13/16 00:43> Date of Encounter: 10/12/16 Time of Encounter: 01:08 Assessment and Plan (1) Acute respiratory failure Current visit: Yes Status: Resolved Please note that the initial H&P performed on presentation was entered on the wrong patient's chart. This is the H&P that was performed on 10/12/2016 at 01: 08 Secondary to overdose as discussed above. Continue ventilatory support. Initial chest x-ray showed some opacification of the left lung which likely represents atelectasis to the right mainstem bronchial intubation. The ET tube was withdrawn and repeat Chest x-ray shows much improved aeration.will repeat chest x-ray in the morning. If opacification persists then the patient may require antibiotics for aspiration coverage. Qualifiers: Respiratory failure complication: unspecified whether with hypoxia or hypercapnia Qualified Code(s): J96.00 - Acute respiratory failure, unspecified whether with hypoxia or hypercapnia (2) Overdose Current visit: Yes Status: Acute appears to be overdose of Klonopin with also concern for gabapentin and Suboxone as reported by the police department. The only bottle that we have is Klonopin 2 mg of which 90 were dispensed on October 10 and remain in the bottle. Patient's urine tox screen was positive for benzodiazepines only. Continues fluid hydration and supportive therapy. Qualifiers: Encounter type: initial encounter Injury intent: undetermined intent Qualified Code(s): T50.904A - Poisoning by unspecified drugs, medicaments and biological substances, undetermined, initial encounter (3) Acute kidney injury Current visit: Yes Status: Acute Creatinine 1.37 on presentation. No old measurements to compare to. Likely related to hypoperfusion in the setting of overdose. We will give fluids and recheck in the morning. (4) Alcohol use Current visit: Yes Status: Acute Patient's alcohol level was 44 and presentation. History of prior use is unknown given the patient's mental status. Versed is currently being used for sedation so this will protect against alcohol withdrawal but at the time of extubation patient will need to be monitored for withdrawal symptoms. (5) DVT prophylaxis Current visit: Yes Status: Acute Heparin 5000 units subcutaneous twice a day Internal Medicine - H&P: HPI Chief complaint: Overdose Admitted From: Emergency Dept Plans for Post Hospital Care: Home History of present illness: Ms. Pace is a 47 year old female with unknown medical history who presents with altered mental status presumed to be from overdose. At the time I examined the patient is intubated and sedated and not responsive so history is unobtainable. Attempts made to reach the family were unsuccessful. Apparently the police found the patient unresponsive with medication containers are on her continuing Klonopin, gabapentin, and Suboxone. A bottle of Klonopin 2 mg tablets were brought with the patient that was filled on 10/10/2016 for 90 tablets, upon arrival there were 52 tablets remaining in the bottle. No other bottles were brought in. Upon review of records in the inpatient and outpatient there is no previous visits by this patient and no record of any med list past medical history. Past Med Surg Social Fam HX - Past Medical History Source: unable to obtain (Due to mental status) - Past Surgical History Surgical History: other (Unable to obtain due to mental status) - Social History Packs per day: 1 Additional social history: Unable to obtain due to mental status - Family History Mother Name: Esme Living Status: Age at : 56 Cause of : Liver cancer - Additional Family History Additional family history: Unable to obtain due to mental status Internal Medicine - H&P: Meds Amitriptyline [Elavil] 100 mg PO HS 09/06/16 [History] Buprenorphine HCl [Subutex] 16 mg SL DAILY 09/06/16 [History] Gabapentin [Neurontin] 800 mg PO TID 09/06/16 [History] Lisinopril [Zestril] 20 mg PO DAILY 09/06/16 [History] Omeprazole [PriLOSEC] 20 mg PO DAILY 09/06/16 [History] Zolpidem [Ambien] 10 mg PO HS 09/06/16 [History] metFORMIN [Glucophage] 500 mg PO HS 09/06/16 [History] Levothyroxine [Synthroid] 50 mcg PO 0630 tablet 09/12/16 [Rx] Cholecalciferol (D-3) [Vitamin D] 1,000 unit PO DAILY 10/12/16 [History] DULoxetine [Cymbalta] 90 mg PO DAILY 10/12/16 [History] clonazePAM [Klonopin] 2 mg PO TID PRN 10/12/16 [History] Allergies hydrocodone Allergy (Verified 04/17/16 11:51) Hives Penicillins [PCN] Allergy (Verified 06/18/15 13:18) Hives ROS unobtainable: due to endotracheal tube All Systems PM: A 10-system review of systems was performed and is negative for pertinent findings except as documented above in the HPI. - Constitutional Vitals: Temp Pulse Resp BP Pulse Ox 98.6 F 88 16 123/84 98 10/12/16 19:05 10/12/16 19:05 10/12/16 19:05 10/12/16 19:05 10/12/16 20:46 General appearance: Present: A&O X 0, no acute distress Exam: Patient is intubated and sedated. - Head Head exam: Present: atraumatic, normal inspection, normocephalic - Eye Pupils: Present: mydriatic (With minimal response) - ENT ENT exam: Present: mucous membranes moist - Neck Neck exam general surgery: Present: supple - Respiratory Additional comments: Coarse breath sounds bilaterally. No rales, rhonchi, wheezes noted - Cardiovascular Cardiovascular exam: Present: RRR. Absent: gallop, rubs, systolic murmur - GI/Abdominal GI/Abdominal exam: Present: normal bowel sounds, soft. Absent: distended, tenderness - Extremities Exam Extremities exam: Present: warm. Absent: cyanotic, pedal edema, tenderness - Neurological Exam Additional comments: Patient is intubated and sedated and minimally responsive. Prior to intubation the ER reports that the patient was agitated and moving all 4 extremities spontaneously - Psychiatric Additional comments: Unable to assess Internal Med - H&P Results - Impressions ITS Impressions Brain MRI 10/12/16 17:04 IMPRESSION: Normal noncontrast MRI brain. D/ / Adelaida Castillo MD / Adelaida Castillo MD Interpreting Provider: Adelaida Castillo MD <Toby Wyatt - Last Filed: 10/13/16 01:10> Date of Encounter: 10/12/16 Internal Medicine - H&P: HPI History of present illness: Ms. Pace is a 41 year old female All Systems PM: A 10-system review of systems was performed and is negative for pertinent findings except as documented above in the HPI. - Constitutional Vitals: Temp Pulse Resp BP Pulse Ox 98.6 F 88 16 123/84 98 10/12/16 19:05 10/12/16 19:05 10/12/16 19:05 10/12/16 19:05 10/12/16 20:46 Internal Med - H&P Results - Impressions ITS Impressions Brain MRI 10/12/16 17:04 IMPRESSION: Normal noncontrast MRI brain. D/ / Adelaida Castillo MD / Adelaida Castillo MD Interpreting Provider: Adelaida Castillo MD - Attending Attestation THIS IS A LATE ENTRY SINCE THE INITIAL ADMISSION WAS PERFORMED ON A DIFFERENT ENCOUNTER <Toby Wyatt - Last Filed: 10/12/16 05:50> Date of Encounter: 10/12/16 Internal Medicine - H&P: HPI History of present illness: Ms. Pace is a 47 year old female All Systems PM: A 10-system review of systems was performed and is negative for pertinent findings except as documented above in the HPI. - Constitutional Vitals: Temp Pulse Resp BP Pulse Ox 97.5 F L 92 12 116/91 100 10/12/16 05:11 10/12/16 05:01 10/12/16 05:01 10/12/16 05:01 10/12/16 05:01 Internal Med - H&P Results - Labs CBC & Chem 7: 10/12/16 03:12 10/12/16 03:12 Labs: Short CBC 10/12/16 Range/Units 03:12 WBC 12.6 H (4.3-11.1) K/mcL Hgb 12.8 (11.5-15.4) g/dL Hct 37.7 (35.3-44.9) % Plt Count 269 (140-400) K/mcL Neutrophils # 9.7 H (1.6-8.9) K/mcL BMP 10/12/16 03:12 Sodium 137 Potassium 4.0 Chloride 104 Carbon Dioxide 23 BUN 15 Creatinine 1.16 H Glucose 121 H Calcium 7.9 L Liver Function 10/12/16 Range/Units 03:12 Total Bilirubin 0.5 (0.2-1.2) mg/dL AST 34 (5-34) Units/L ALT 38 (0-55) Units/L Alkaline Phosphatase 111 (38-126) Units/L Albumin 3.3 L (3.5-5.0) g/dL - ABG Interpretation Interpretation: ABG interpreted by me ABG results: 10/12/16 10/12/16 01:40 05:00 ABG pH 7.34 7.35 ABG pCO2 49 H 50 H ABG pO2 105 H 158 H ABG HCO3 26.4 27.6 H ABG Total CO2 27.9 H 29.1 H ABG O2 Saturation 98 99 H ABG Base Excess 0.1 1.3 - Impressions ITS Impressions Head CT 10/12/16 22:26 IMPRESSION: No acute intracranial abnormality. D/ / Anne Diaz MD / Anne Diaz MD Interpreting Provider: Anne Diaz MD - Diagnostic Studies Chest x-ray Status: image reviewed by me CT scan - head Status: image reviewed by me - Attending Attestation I personally examined this patient and my medical decision-making was reviewed with the Resident Physician. I agree with the documented findings, disposition and treatment plan as described except to the extent set forth below. Patient has acute toxic/metabolic encephalopathy/Acute hypoxic respiratory failure/Hypokalemia/Hypomagnesemia/Hyperglycemia/Lactic acidosis/Iatrogenic left lung collapse from right mainstem intubation initially s/p correction and alveoli recruitment mechanics/intentional polysubstance overdose Patient has critical illness, with multiple vital organ impairment; brain, respiratory and renal with a high probability of imminent or life threatening deterioration in her condition. I performed critical intervention, involving high complexity decision making to assess, manipulate, and support vital organ system failure; and I spent about 50 minutes engaged in work directly related to the patient's care at her immediate bedside and also on the unit. Critical care time: 50 minutes
[2016-10-13 05:04] LABS: Basophils % 0.5 %; Eosinophils # 0.4 K/mcL (0.0-0.6); Hemoglobin 12.3 g/dL (11.5-15.4); Immature Granulocytes % 0.2 % (0-4); Lymphocytes # 2.4 K/mcL (0.6-4.6); Lymphocytes % 27.6 %; Mean Corpuscular HGB Conc 34.2 g/dL (31.6-35.5); Mean Corpuscular Hemoglobin 32.3 pg (28.0-33.3); Mean Corpuscular Volume 94.5 fL (83.0-100.0); Mean Platelet Volume 10.8 fL (9.4-12.4); Monocytes # 0.6 K/mcL (0.0-1.3); Monocytes % 7.2 %; Neutrophils # 5.2 K/mcL (1.6-8.9); Platelet Count 245 K/mcL (140-400); Red Blood Count 3.81 M/mcL (3.82-4.97); Red Cell Distribution Width 14.1 % (11.5-14.5); Segmented Neutrophils % 60.5 %
[2016-10-13 05:17] LABS: BUN/Creatinine Ratio 10 (6-26); Blood Urea Nitrogen 7 mg/dL (7-20); Calcium 8.7 mg/dL (8.6-10.8); Carbon Dioxide 25 mEq/L (19-29); Chloride 106 mEq/L (98-109); Glucose 114 mg/dL (70-99); Magnesium 1.8 mg/dL (1.6-2.6); Osmolality,Calculated 287 (280-300); Phosphorous 2.3 mg/dL (2.3-4.7); Potassium 3.5 mEq/L (3.5-4.5); Sodium 139 mEq/L (136-145); eGFR For African Americans > 60 (> 60); eGFR For Non-African Americans > 60 (> 60)
[2016-10-13] MEDS: *HR* Heparin 5,000 UNIT/ML VIAL SQ SCH ×2 (05:55→14:39)
[2016-10-13] MEDS: clonazePAM 1 MG TABLET PO PRN (06:22)
[2016-10-13] MEDS: Insulin LISPRO 300 UNITS/3 ML VIAL SQ SCH ×2 (08:08→11:57)
[2016-10-13] MEDS ORDERED: Lisinopril 20 MG TABLET PO SCH (09:00)
--- NOTE | 2016-10-13 09:39 | EEG/EMG/Oth Biometrics Report ---
EEG Procedure Report Date of procedure: 10/13/16 EEG Procedure: Routine EEG Procedure Note: This EEG was acquired with standard international 10-20 system with EKG recording. The background EEG activity was characterized by the presence of posterior dominant alpha rhythm with the best frequency up to 11 Hz. The background activity was reactive to eye openings. Sleep stages were not identified during this tracing. Drowsiness was characterized by drop off of posterior dominant Alpha rhythm. There are no electrographic seizures identified during this tracing. There are no epileptiform discharges and focal slowing noted during this recording. Photic stimulation produced and produced no abnormalities. Hyperventilation procedure not performed EKG tracing showed no significant cardiac dysrhythmia. Extensive beta activity seen diffusely during the study. Impression: This is essentially a normal awake and drowsy EEG. Extensive beta can be the results of medication effects including those from benzodiazepam and phenobarbital. Clinical Correlation: Normal EEGs, however, do not exclude epilepsy. Clinical correlation is advised.
[2016-10-13 11:13] LABS: Bilirubin,Urine Negative (Negative); Clarity,Urine Clear (Clear); Color,Urine Yellow (Yellow); Glucose,Urine (UA) Normal (Normal); Ketones,Urine Negative (Negative); Specific Gravity,Urine 1.009 (1.010-1.025)
[2016-10-13 11:14] LABS: Blood,Urine Negative (Negative); Leukocyte Esterase,Urine Negative (Negative); Nitrite,Urine Negative (Negative); Protein,Urine 30 mg/dL (Neg-Trace); RBC,Urine 0-3 per hpf (0-3); Squamous Epithelial Cell,Urine Many per lpf (None-Few); Urobilinogen,Urine Normal (Normal); WBC,Urine 0-3 per hpf (0-3)
[2016-10-13 11:15] LABS: Bacteria,Urine None Seen per hpf (None-Few); Hyaline Casts,Urine None Seen per lpf (None-Few)
[2016-10-13 11:16] LABS: Amphetamine Screen,Urine Negative ng/mL (Cutoff=1000); Barbiturate Screen,Urine Negative ng/mL (Cutoff=200); Benzodiazepines Screen,Urine Positive ng/mL (Cutoff=200); Cannabinoid Screen,Urine Negative ng/mL (Cutoff = 50); Cocaine Screen,Urine Negative ng/mL (Cutoff= 300); Opiate Screen,Urine Negative ng/mL (Cutoff=300); Phencyclidine Screen,Urine Negative ng/mL (Cutoff=25)
[2016-10-13 11:17] LABS: Hemoglobin 12.7 g/dL (11.5-15.4); Red Blood Count 3.87 M/mcL (3.82-4.97)
[2016-10-13 11:18] LABS: Basophils # 0.1 K/mcL (0.0-0.2); Basophils % 0.6 %; Eosinophils # 0.2 K/mcL (0.0-0.6); Eosinophils % 1.8 %; Hematocrit 36.9 % (35.3-44.9); Immature Granulocytes % 0.5 % (0-4); Lymphocytes # 4.4 K/mcL (0.6-4.6); Lymphocytes % 34.7 %; Mean Corpuscular HGB Conc 34.4 g/dL (31.6-35.5); Mean Corpuscular Hemoglobin 32.8 pg (28.0-33.3); Mean Corpuscular Volume 95.3 fL (83.0-100.0); Monocytes % 7.6 %; Neutrophils # 6.9 K/mcL (1.6-8.9); Platelet Count 313 K/mcL (140-400); Red Cell Distribution Width 14.1 % (11.5-14.5); Segmented Neutrophils % 54.8 %
[2016-10-13 11:20] LABS: Alkaline Phosphatase 106 Units/L (38-126); Aspartate Amino Transferase 36 Units/L (5-34); BUN/Creatinine Ratio 11 (6-26); Bilirubin,Direct 0.1 mg/dL (0.0-0.5); Bilirubin,Indirect 0.2 mg/dL (0.0-1.2); Bilirubin,Total 0.3 mg/dL (0.2-1.2); Blood Urea Nitrogen 15 mg/dL (7-20); Calcium 7.9 mg/dL (8.6-10.8); Carbon Dioxide 21 mEq/L (19-29); Chloride 101 mEq/L (98-109); Glucose 137 mg/dL (70-99); Osmolality,Calculated 289 (280-300); Potassium 3.4 mEq/L (3.5-4.5); Sodium 138 mEq/L (136-145); eGFR For African Americans 52 (> 60); eGFR For Non-African Americans 43 (> 60)
[2016-10-13 11:21] LABS: Alanine Aminotransferase 39 Units/L (0-55); Albumin 3.3 g/dL (3.5-5.0); Ethanol 44 mg/dL (0-10); Globulin 3.3 g/dL (2.4-3.5); Salicylate < 5.0 mg/dL (15-30); Total Protein 6.6 g/dL (6.0-8.3)
[2016-10-13 11:22] LABS: ABG Base Excess -1.4 mEq/L (-2.0 to 3.0); ABG HCO3 25.6 mEQ/L (21-27); ABG Oxygen Saturation 100 % (95-98); ABG PCO2 52 mmHg (35-45); ABG PO2 457 mmHg (85-104); ABG TCO2 27.2 mEq/L (20-26)
[2016-10-13 11:23] LABS: Blood Gas FiO2 100 %
[2016-10-13 11:24] LABS: ABG PH 7.34 pH Units (7.32-7.45)
[2016-10-13 11:25] LABS: ABG Base Excess 0.1 mEq/L (-2.0 to 3.0); ABG HCO3 26.4 mEQ/L (21-27); ABG Oxygen Saturation 98 % (95-98); ABG PCO2 49 mmHg (35-45); ABG PO2 105 mmHg (85-104); ABG TCO2 27.9 mEq/L (20-26); Blood Gas FiO2 40 %
[2016-10-13 11:26] LABS: Hemoglobin 12.8 g/dL (11.5-15.4); Red Blood Count 3.92 M/mcL (3.82-4.97)
[2016-10-13 11:27] LABS: Basophils % 0.3 %; Eosinophils # 0.1 K/mcL (0.0-0.6); Eosinophils % 0.5 %; Hematocrit 37.7 % (35.3-44.9); Immature Granulocytes % 0.4 % (0-4); Lymphocytes % 15.7 %; Mean Corpuscular Hemoglobin 32.7 pg (28.0-33.3); Mean Corpuscular Volume 96.2 fL (83.0-100.0); Mean Platelet Volume 10.4 fL (9.4-12.4); Monocytes # 0.7 K/mcL (0.0-1.3); Monocytes % 5.9 %; Neutrophils # 9.7 K/mcL (1.6-8.9); Platelet Count 269 K/mcL (140-400); Red Cell Distribution Width 14.3 % (11.5-14.5); Segmented Neutrophils % 77.2 %
[2016-10-13 11:28] LABS: Blood Urea Nitrogen 15 mg/dL (7-20); Carbon Dioxide 23 mEq/L (19-29); Chloride 104 mEq/L (98-109); Sodium 137 mEq/L (136-145)
[2016-10-13 11:29] LABS: Alanine Aminotransferase 38 Units/L (0-55); Albumin 3.3 g/dL (3.5-5.0); Albumin/Globulin Ratio 0.9 (1.1-2.2); Alkaline Phosphatase 111 Units/L (38-126); Aspartate Amino Transferase 34 Units/L (5-34); BUN/Creatinine Ratio 13 (6-26); Bilirubin,Total 0.5 mg/dL (0.2-1.2); Calcium 7.9 mg/dL (8.6-10.8); Globulin 3.7 g/dL (2.4-3.5); Glucose 121 mg/dL (70-99); Magnesium 1.2 mg/dL (1.6-2.6); Osmolality,Calculated 286 (280-300); eGFR For African Americans > 60 (> 60); eGFR For Non-African Americans 52 (> 60)
[2016-10-13 11:30] LABS: ABG HCO3 27.6 mEQ/L (21-27); ABG PCO2 50 mmHg (35-45); ABG PH 7.35 pH Units (7.32-7.45); ABG PO2 158 mmHg (85-104)
[2016-10-13 11:31] LABS: ABG Base Excess 1.3 mEq/L (-2.0 to 3.0); ABG Oxygen Saturation 99 % (95-98); ABG TCO2 29.1 mEq/L (20-26); Blood Gas FiO2 40 %
[2016-10-13 11:33] LABS: Ionized Calcium 0.96 mmol/L (1.15-1.35)
[2016-10-13 11:34] LABS: Phosphorous 3.3 mg/dL (2.3-4.7)
[2016-10-13] MEDS ORDERED: Nicotine 21 MG PATCH.TD24 TD SCH (12:00)
--- NOTE | 2016-10-13 12:57 | Consult Note ---
Date of Encounter: 10/12/16 (consult was done on 10/12/16 at 14:40. and reported on the wrong chart.) Time of Encounter: 14:40 (see above) Assessment & Recommendation (1) Unresponsive episode Current visit: Yes Status: Acute Assessment & Recommendation: 1. From psychiatric standpoint patient is stable and does not meet criteria for inpatient psychiatric hospitalization 2. Referral to outpatient mental health clinic is recommended for continuity of care. Thank you for consultation. History of Present Illness Patient: new to practice Requesting Physician: Doug Calderon MD Reason for consult: Possible overdose History of present illness: Ms. Pace is a 41 year old female admitted to the hospital for evaluation of change in mental status. Patient was found unresponsive and was brought to the hospital. Psychiatry was consulted to evaluate possible overdose or suicide attempt. Patient was seen by neurology consults to evaluate seizures and evaluation was reviewed. Patient denies any intention to overdose or suicide attempts. On admission UDS was positive for benzodiazepine and alcohol level was patient reported history of psychiatric admission in the past and she is not currently followed by outpatient mental health. CC: Doug Calderon MD Past Med Surg Social Fam HX - Past Medical History Medical history: diabetes, fibromyalgia, hypertension, migraine, RA, renal disease, seizures, thyroid disease - Past Surgical History Surgical History: other (Unable to obtain due to mental status) - Social History Smoking Status: Current every day smoker Smokeless Tobacco Status: No Alcohol use: none Drug use: marijuana - Family History Mother Adopted: [place]: Esme Living Status: Age at : 56 Cause of : Liver cancer Hx Family Cardiac Disorders: Yes Hx Family Respiratory Disorders: Yes Hx Family Cancer: Yes Hx Family GI Disorders: No Hx Family Genitourinary Disorders: No Hx Family Endocrine Disorder: No Hx Family Musculoskeletal Disorders: No Hx Family Neuromuscular Disorders: No Hx Family Neurologic Disorders: No Hx Family HEENT Disorders: No Hx Family Autoimmune Disorders: No Hx Family Reproductive Disorders: No Hx Family Psychosocial Disorders: No Hx Family Medical Disorders: No Medications & Allergies Amitriptyline [Elavil] 100 mg PO HS 09/06/16 [History] Buprenorphine HCl [Subutex] 16 mg SL DAILY 09/06/16 [History] Gabapentin [Neurontin] 800 mg PO TID 09/06/16 [History] Lisinopril [Zestril] 20 mg PO DAILY 09/06/16 [History] Omeprazole [PriLOSEC] 20 mg PO DAILY 09/06/16 [History] Zolpidem [Ambien] 10 mg PO HS 09/06/16 [History] metFORMIN [Glucophage] 500 mg PO HS 09/06/16 [History] Levothyroxine [Synthroid] 50 mcg PO 0630 tablet 09/12/16 [Rx] Cholecalciferol (D-3) [Vitamin D] 1,000 unit PO DAILY 10/12/16 [History] DULoxetine [Cymbalta] 90 mg PO DAILY 10/12/16 [History] clonazePAM [Klonopin] 2 mg PO TID PRN 10/12/16 [History] Allergies hydrocodone Allergy (Verified 04/17/16 11:51) Hives Penicillins [PCN] Allergy (Verified 06/18/15 13:18) Hives Mental Status Exam Patient orientation: Yes Person, Yes Time, Yes Place Level of alertness: Alert Patient appearance: Appropriate, Unkempt, Obese Behavior: calm, cooperative Psychomotor activity: Normal Eye contact: Maintains Eye Contact Mood description: Euthymic/stable Affect description: congruent with mood, full range Speech pattern: Normal rate, Normal rhythm, Normal tone Speech volume: Normal Thought process: Linear, Goal Oriented Thought content: No Suicidal ideation, No Homicidal ideation, No Overt delusions Perceptual disturbances: No Auditory hallucinations, No Visual hallucinations Attention span: Capable of Focused Attention Memory description: Grossly Intact Patient reliability: Reliable Historian Intelligence estimate: Average Judgment: Limited Insight: Partial Results - Vital Signs Vital signs: Temp Pulse Resp BP Pulse Ox 98.1 F 78 16 118/80 96 10/13/16 11:21 10/13/16 11:21 10/13/16 11:21 10/13/16 11:21 10/13/16 11:21 - Labs Labs: Laboratory Last Values WBC 8.7 K/mcL (4.3-11.1) 10/13/16 04:32 RBC 3.81 M/mcL (3.82-4.97) L 10/13/16 04:32 Hgb 12.3 g/dL (11.5-15.4) 10/13/16 04:32 Hct 36.0 % (35.3-44.9) 10/13/16 04:32 MCV 94.5 fL (83.0-100.0) 10/13/16 04:32 MCH 32.3 pg (28.0-33.3) 10/13/16 04:32 MCHC 34.2 g/dL (31.6-35.5) 10/13/16 04:32 RDW 14.1 % (11.5-14.5) 10/13/16 04:32 Plt Count 245 K/mcL (140-400) 10/13/16 04:32 MPV 10.8 fL (9.4-12.4) 10/13/16 04:32 Immature Gran % 0.2 % (0-4) 10/13/16 04:32 Seg Neutrophils % 60.5 % 10/13/16 04:32 Lymphocytes % 27.6 % 10/13/16 04:32 Monocytes % 7.2 % 10/13/16 04:32 Eosinophils % 4.0 % 10/13/16 04:32 Basophils % 0.5 % 10/13/16 04:32 Neutrophils # 5.2 K/mcL (1.6-8.9) 10/13/16 04:32 Lymphocytes # 2.4 K/mcL (0.6-4.6) 10/13/16 04:32 Monocytes # 0.6 K/mcL (0.0-1.3) 10/13/16 04:32 Eosinophils # 0.4 K/mcL (0.0-0.6) 10/13/16 04:32 Basophils # 0.0 K/mcL (0.0-0.2) 10/13/16 04:32 ABG pH 7.35 pH Units (7.32-7.45) 10/12/16 05:00 ABG pCO2 50 mmHg (35-45) H 10/12/16 05:00 ABG pO2 158 mmHg (85-104) H 10/12/16 05:00 ABG HCO3 27.6 mEQ/L (21-27) H 10/12/16 05:00 ABG Total CO2 29.1 mEq/L (20-26) H 10/12/16 05:00 ABG O2 Saturation 99 % (95-98) H 10/12/16 05:00 ABG Base Excess 1.3 mEq/L (-2.0 to 3.0) 10/12/16 05:00 Blood Gas Modality ASSIST CONTROL 10/12/16 05:00 Inspired O2 40 % 10/12/16 05:00 Sodium 139 mEq/L (136-145) 10/13/16 04:32 Potassium 3.5 mEq/L (3.5-4.5) 10/13/16 04:32 Chloride 106 mEq/L (98-109) 10/13/16 04:32 Carbon Dioxide 25 mEq/L (19-29) 10/13/16 04:32 BUN 7 mg/dL (7-20) 10/13/16 04:32 Creatinine 0.72 mg/dL (0.57-1.11) 10/13/16 04:32 Est GFR ( Amer) > 60 (> 60) 10/13/16 04:32 Est GFR (Non-Af Amer) > 60 (> 60) 10/13/16 04:32 BUN/Creatinine Ratio 10 (6-26) 10/13/16 04:32 Glucose 114 mg/dL (70-99) H 10/13/16 04:32 POC Glucose 116 (58-89) H 10/13/16 11:22 Calculated Osmolality 287 (280-300) 10/13/16 04:32 Lactic Acid 1.0 mmol/L (0.5-2.2) 10/12/16 07:21 Calcium 8.7 mg/dL (8.6-10.8) 10/13/16 04:32 Ionized Calcium 0.96 mmol/L (1.15-1.35) L 10/12/16 07:21 Phosphorus 2.3 mg/dL (2.3-4.7) 10/13/16 04:32 Magnesium 1.8 mg/dL (1.6-2.6) 10/13/16 04:32 Total Bilirubin 0.5 mg/dL (0.2-1.2) 10/12/16 03:12 Direct Bilirubin 0.1 mg/dL (0.0-0.5) 10/11/16 23:09 Indirect Bilirubin 0.2 mg/dL (0.0-1.2) 10/11/16 23:09 AST 34 Units/L (5-34) 10/12/16 03:12 ALT 38 Units/L (0-55) 10/12/16 03:12 Alkaline Phosphatase 111 Units/L (38-126) 10/12/16 03:12 Serum Total Protein 7.0 g/dL (6.0-8.3) 10/12/16 03:12 Albumin 3.3 g/dL (3.5-5.0) L 10/12/16 03:12 Globulin 3.7 g/dL (2.4-3.5) H 10/12/16 03:12 Albumin/Globulin Ratio 0.9 (1.1-2.2) L 10/12/16 03:12 Urine Color Yellow (Yellow) 10/11/16 23:43 Urine Clarity Clear (Clear) 10/11/16 23:43 Urine pH 6.0 pH Units (5.0-8.0) 10/11/16 23:43 Ur Specific [place] 1.009 (1.010-1.025) L 10/11/16 23:43 Urine Protein 30 mg/dL (Neg-Trace) H 10/11/16 23:43 Urine Glucose (UA) Normal mg/dL (Normal) 10/11/16 23:43 Urine Ketones Negative mg/dL (Negative) 10/11/16 23:43 Urine Blood Negative (Negative) 10/11/16 23:43 Urine Nitrite Negative (Negative) 10/11/16 23:43 Urine Bilirubin Negative (Negative) 10/11/16 23:43 Urine Urobilinogen Normal mg/dL (Normal) 10/11/16 23:43 Ur Leukocyte Esterase Negative (Negative) 10/11/16 23:43 Urine Microscopic RBC 0-3 per hpf (0-3) 10/11/16 23:43 Urine Microscopic WBC 0-3 per hpf (0-3) 10/11/16 23:43 Ur Squamous Epith Cells Many per lpf (None-Few) H 10/11/16 23:43 Urine Bacteria None Seen per hpf (None-Few) 10/11/16 23:43 Hyaline Casts None Seen per lpf (None-Few) 10/11/16 23:43 Salicylates < 5.0 mg/dL (15-30) L 10/11/16 23:09 Urine Opiates Screen Negative ng/mL (Barcie=009) 10/11/16 23:43 Acetaminophen 1.0 mcg/mL (10-30) L 10/11/16 23:09 Ur Barbiturates Screen Negative ng/mL (Kuoiwd=636) 10/11/16 23:43 Ur Phencyclidine Scrn Negative ng/mL (Cutoff=25) 10/11/16 23:43 Ur Amphetamines Screen Negative ng/mL (Yotfqw=8073) 10/11/16 23:43 U Benzodiazepines Scrn Positive ng/mL (Lhtanv=035) H 10/11/16 23:43 Urine Cocaine Screen Negative ng/mL (Cutoff= 300) 10/11/16 23:43 U Marijuana (THC) Screen Negative ng/mL (Cutoff = 50) 10/11/16 23:43 Ethyl Alcohol 44 mg/dL (0-10) H 10/11/16 23:09 - Impressions Impressions Brain MRI 10/12/16 17:04 IMPRESSION: Normal noncontrast MRI brain. D/ / Adelaida Castillo MD / Adelaida Castillo MD Interpreting Provider: Adelaida Castillo MD Consult Discharge Plan - Plan Referrals: Eufemia Martinez, GEOPOLITICS TEACHER [Primary Care Provider] -
[2016-10-13] MEDS ORDERED: clonazePAM 1 MG TABLET PO PRN (15:00)
[2016-10-13] MEDS ORDERED: Gabapentin 400 MG CAPSULE PO SCH (15:00)
[2016-10-13 15:13] VITALS: BP 135/95
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
--- NOTE | 2016-10-13 16:27 | Discharge Summary ---
Date of Encounter: 10/13/16 Time of Encounter: 16:00 - Discharge Diagnosis (1) Unresponsive episode Priority: Primary Status: Acute (2) History of seizures Priority: Secondary Status: Acute (3) Acute kidney injury Priority: Primary Status: Acute (4) DVT prophylaxis Priority: Secondary Status: Acute (5) Overdose Priority: Primary Status: Acute Qualifiers: Encounter type: initial encounter Injury intent: undetermined intent Qualified Code(s): T50.904A - Poisoning by unspecified drugs, medicaments and biological substances, undetermined, initial encounter - Discharge Medications Prescriptions: Nicotine Patch [Nicoderm] 21 mg TD DAILY #14 patch.td24 Home Medications: Amitriptyline [Elavil] 100 mg PO HS 09/06/16 [History] Buprenorphine HCl [Subutex] 16 mg SL DAILY 09/06/16 [History] Gabapentin [Neurontin] 800 mg PO TID 09/06/16 [History] Lisinopril [Zestril] 20 mg PO DAILY 09/06/16 [History] Omeprazole [PriLOSEC] 20 mg PO DAILY 09/06/16 [History] Zolpidem [Ambien] 10 mg PO HS 09/06/16 [History] metFORMIN [Glucophage] 500 mg PO HS 09/06/16 [History] Levothyroxine [Synthroid] 50 mcg PO 0630 tablet 09/12/16 [Rx] Cholecalciferol (D-3) [Vitamin D] 1,000 unit PO DAILY 10/12/16 [History] DULoxetine [Cymbalta] 90 mg PO DAILY 10/12/16 [History] clonazePAM [Klonopin] 2 mg PO TID PRN 10/12/16 [History] Nicotine Patch [Nicoderm] 21 mg TD DAILY #14 patch.td24 10/13/16 [Rx] Allergies/Adverse Reactions: Allergies hydrocodone Allergy (Verified 04/17/16 11:51) Hives Penicillins [PCN] Allergy (Verified 06/18/15 13:18) Hives Procedures/tests Complete & Pending: Procedures Performed prior 72 hours Category Date Time Status MR head/brain wo con [MR] Stat MRI 10/12/16 17:04 Completed Date of admission: 10/12/16 01:30 Primary care physician: Eufemia Martinez CNP Consults: 10/12/16 17:02 Consult to Neurology [CONS] Routine Consulting Provider: [facility] Reason for Consult: found unresponsive, hx of seizures Call Completed: Yes Consult to Occupational Therapy [CONS] Routine Comment: Evaluate, develop and implement POC Reason for Consult: evaluate and treat Consult to Physical Therapy [CONS] Routine Comment: Evaluate, develop and implement POC Reason for Consult: evaluate and treat Consult to Pulmonology [CONS] Routine Consulting Provider: [facility] Reason for Consult: ICU critical care Call Completed: Yes 10/12/16 17:04 Consult to Psychiatry [CONS] Routine Consulting Provider: Psychiatry [place] Reason for Consult: found unresponsive with empty pill bottles. hx of suicide attempts. Call Completed: Yes 10/13/16 07:47 Consult to Financial Analyst [CONS] Routine Reason for SW Consult: states she's homeless Discharging clinician: Doug Calderon Anticipated date of discharge: 10/13/16 - Patient Status Disposition: Home, Self-Care Condition: Fair - Discharge Instructions Follow Up With: Eufemia Martinez CNP [Primary Care Provider] - Angelo Mendes MD [Partnered Physician] - 10/27/16 - Diet and Activity Activity: increase activity as tolerated Diet: advance to your usual diet Interval History: Ms. Pace is a 47 year old female with unknown medical history who presents with altered mental status presumed to be from overdose. At the time I examined the patient is intubated and sedated and not responsive so history is unobtainable. Attempts made to reach the family were unsuccessful. Apparently the police found the patient unresponsive with medication containers are on her continuing Klonopin, gabapentin, and Suboxone. A bottle of Klonopin 2 mg tablets were brought with the patient that was filled on 10/10/2016 for 90 tablets, upon arrival there were 52 tablets remaining in the bottle. No other bottles were brought in. Upon review of records in the inpatient and outpatient there is no previous visits by this patient and no record of any med list past medical history Hospital course: Ms. Pace is a 41 year old female admitted as nonresponsive and medication overdose. Patient was intubated and admitted to ICU. She was given hydration and her condition has improved. She was extubated unevently. Psychology and neurology consult saw patient. Psychiatry consult recommended outpatient psych follow-up, not need inpatient psych treatment. Neurology saw patient, initially to start Depakote ER 500 daily, however when figure out the patient is on gabapentin, recommend keep her gabapentin and follow up with neurology in 2-3 weeks. I saw and examined the patient today. She is awake alert, oriented 3. Vital signs stable. Hepatic and renal function recovered to normal level. Patient has been observed over 48 hours. Will discharge patient home and to follow-up with neurology and psychiatry as outpatient. Time spent discussing smoking cessation with patient: more than 10 minutes - Time Spent with Patient Total time spent providing and/or coordinating discharge services: 40 minutes Greater than 30 minutes - Constitutional Vitals: Temp Pulse Resp BP Pulse Ox 98.3 F 83 16 135/95 99 10/13/16 15:11 10/13/16 15:11 10/13/16 15:11 10/13/16 15:11 10/13/16 15:11 General appearance: Present: A&O X 3, no acute distress, answers questions appropriately - Head Head exam: Present: atraumatic, normocephalic - Eye Eye exam: Present: PERRL, conjuntiva pink, sclera anicteric Pupils: Present: PERRL - Neck Neck exam general surgery: Present: supple, trachea midline. Absent: lymphadenopathy - Respiratory Respiratory exam: Present: CTAB. Absent: accessory muscle use, rales, rhonchi, wheezes - Cardiovascular Cardiovascular exam: Present: RRR, +S1, +S2. Absent: diastolic murmur, gallop, rubs, systolic murmur - GI/Abdominal GI/Abdominal exam: Present: normal bowel sounds, soft, no peritoneal signs. Absent: distended, tenderness - Extremities Exam Extremities exam: Present: warm, radial pulses palpable and symetrical. Absent : calf tenderness, cyanotic, pedal edema - Neurological Exam Neurological exam: Present: CN II-XII intact, oriented X3, no focal deficits. Absent: pronater drift, facial droop, speech deficit - Skin Skin exam: Present: dry, intact
[2016-10-13 21:08] LABS: Adenovirus F 40/41 PCR Not detected (Not detect); Astrovirus PCR Not detected (Not detect); C.difficile Toxin A/B by PCR Not detected (Not detect); Campylobacter by PCR Not detected (Not detect); Cryptosporidium by PCR Not detected (Not detect); Cyclospora cayetanensis PCR Not detected (Not detect); E. coli O157 by PCR Not detected (Not detect); Entamoeba histolytica PCR Not detected (Not detect); Enteroaggregative E.coli(EAEC) Not detected (Not detect); Enteropathogenic E.coli(EPEC) Not detected (Not detect); Enterotoxigenic E.coli (ETEC) Not detected (Not detect); Giardia lamblia PCR Not detected (Not detect); Norovirus GI/GII PCR Not detected (Not detect); Plesiomonas shigelloides PCR Not detected (Not detect); Rotavirus A PCR Not detected (Not detect); Salmonella PCR Not detected (Not detect); Sapovirus PCR Not detected (Not detect); Shig/EnteroinvasiveE coli EIEC Not detected (Not detect); Shigalike tox-prod E coli STEC Not detected (Not detect); Vibrio PCR Not detected (Not detect); Vibrio cholerae PCR Not detected (Not detect); Yersinia enterocolitica PCR Not detected (Not detect)
--- NOTE | 2016-10-14 05:39 | Emergency Department Note ---
START Narrative - START START: Emergency Department note from 10/11/2016. Originally received under incorrect account. Note transferred to correct account. *LIVE* [facility] Overdose Patient Name: Liza Pace Date of : [birth year] Patient Status: Emergency Emergency Provider: Erich Brown Date: 10/11/16 23:33 Initialization Date: 10/11/16 23:33 Overdose - Lab Data Result diagrams: 10/11/16 23:09 10/11/16 23:09 Lab Results 10/11/16 10/11/16 10/11/16 Range/Units 23:09 23:09 23:35 WBC 12.6 H (4.3-11.1) K/mcL RBC 3.87 (3.82-4.97) M/mcL Hgb 12.7 (11.5-15.4) g/dL Hct 36.9 (35.3-44.9) % MCV 95.3 (83.0-100.0) fL MCH 32.8 (28.0-33.3) pg MCHC 34.4 (31.6-35.5) g/dL RDW 14.1 (11.5-14.5) % Plt Count 313 (140-400) K/mcL MPV 10.0 (9.4-12.4) fL Immature Gran % 0.5 (0-4) % Seg Neutrophils % 54.8 % Lymphocytes % 34.7 % Monocytes % 7.6 % Eosinophils % 1.8 % Basophils % 0.6 % Neutrophils # 6.9 (1.6-8.9) K/mcL Lymphocytes # 4.4 (0.6-4.6) K/mcL Monocytes # 1.0 (0.0-1.3) K/mcL Eosinophils # 0.2 (0.0-0.6) K/mcL Basophils # 0.1 (0.0-0.2) K/mcL ABG pH 7.30 L (7.32-7.45) pH Units ABG pCO2 52 H (35-45) mmHg ABG pO2 457 H (85-104) mmHg ABG HCO3 25.6 (21-27) mEQ/L ABG Total CO2 27.2 H (20-26) mEq/L ABG O2 Saturation 100 H (95-98) % ABG Base Excess -1.4 (-2.0 to 3.0) mEq/L Blood Gas Modality ASSIST CONTROL Inspired O2 100 % Sodium 138 (136-145) mEq/L Potassium 3.4 L (3.5-4.5) mEq/L Chloride 101 (98-109) mEq/L Carbon Dioxide 21 (19-29) mEq/L BUN 15 (7-20) mg/dL Creatinine 1.37 H (0.57-1.11) mg/dL Est GFR ( Amer) 51 L (> 60) Est GFR (Non-Af Amer) 42 L (> 60) BUN/Creatinine Ratio 11 (6-26) Glucose 137 H (70-99) mg/dL POC Glucose (58-89) Calculated Osmolality 289 (280-300) Lactic Acid (0.5-2.2) mmol/L Calcium 7.9 L (8.6-10.8) mg/dL Total Bilirubin 0.3 (0.2-1.2) mg/dL Direct Bilirubin 0.1 (0.0-0.5) mg/dL Indirect Bilirubin 0.2 (0.0-1.2) mg/dL AST 36 H (5-34) Units/L ALT 39 (0-55) Units/L Alkaline Phosphatase 106 (38-126) Units/L Serum Total Protein 6.6 (6.0-8.3) g/dL Albumin 3.3 L (3.5-5.0) g/dL Globulin 3.3 (2.4-3.5) g/dL Albumin/Globulin Ratio 1.0 L (1.1-2.2) Urine Color (Yellow) Urine Clarity (Clear) Urine pH (5.0-8.0) pH Units Ur Specific Wood (1.010-1.025) Urine Protein (Neg-Trace) mg/dL Urine Glucose (UA) (Normal) mg/dL Urine Ketones (Negative) mg/dL Urine Blood (Negative) Urine Nitrite (Negative) Urine Bilirubin (Negative) Urine Urobilinogen (Normal) mg/dL Ur Leukocyte Esterase (Negative) Urine Microscopic RBC (0-3) per hpf Urine Microscopic WBC (0-3) per hpf Ur Squamous Epith Cells (None-Few) per lpf Urine Bacteria (None-Few) per hpf Hyaline Casts (None-Few) per lpf Salicylates < 5.0 L (15-30) mg/dL Urine Opiates Screen (Fwjmly=371) ng/mL Acetaminophen 1.0 L (10-30) mcg/mL Ur Barbiturates Screen (Rqprxg=693) ng/mL Ur Phencyclidine Scrn (Cutoff=25) ng/mL Ur Amphetamines Screen (Scrjms=5585) ng/mL U Benzodiazepines Scrn (Whbonc=324) ng/mL Urine Cocaine Screen (Cutoff= 300) ng/mL U Marijuana (THC) Screen (Cutoff = 50) ng/mL Ethyl Alcohol 44 H (0-10) mg/dL 10/11/16 10/11/16 10/12/16 Range/Units 23:43 23:43 00:39 WBC (4.3-11.1) K/mcL RBC (3.82-4.97) M/mcL Hgb (11.5-15.4) g/dL Hct (35.3-44.9) % MCV (83.0-100.0) fL MCH (28.0-33.3) pg MCHC (31.6-35.5) g/dL RDW (11.5-14.5) % Plt Count (140-400) K/mcL MPV (9.4-12.4) fL Immature Gran % (0-4) % Seg Neutrophils % % Lymphocytes % % Monocytes % % Eosinophils % % Basophils % % Neutrophils # (1.6-8.9) K/mcL Lymphocytes # (0.6-4.6) K/mcL Monocytes # (0.0-1.3) K/mcL Eosinophils # (0.0-0.6) K/mcL Basophils # (0.0-0.2) K/mcL ABG pH (7.32-7.45) pH Units ABG pCO2 (35-45) mmHg ABG pO2 (85-104) mmHg ABG HCO3 (21-27) mEQ/L ABG Total CO2 (20-26) mEq/L ABG O2 Saturation (95-98) % ABG Base Excess (-2.0 to 3.0) mEq/L Blood Gas Modality Inspired O2 % Sodium (136-145) mEq/L Potassium (3.5-4.5) mEq/L Chloride (98-109) mEq/L Carbon Dioxide (19-29) mEq/L BUN (7-20) mg/dL Creatinine (0.57-1.11) mg/dL Est GFR ( Amer) (> 60) Est GFR (Non-Af Amer) (> 60) BUN/Creatinine Ratio (6-26) Glucose (70-99) mg/dL POC Glucose 107 H (58-89) Calculated Osmolality (280-300) Lactic Acid (0.5-2.2) mmol/L Calcium (8.6-10.8) mg/dL Total Bilirubin (0.2-1.2) mg/dL Direct Bilirubin (0.0-0.5) mg/dL Indirect Bilirubin (0.0-1.2) mg/dL AST (5-34) Units/L ALT (0-55) Units/L Alkaline Phosphatase (38-126) Units/L Serum Total Protein (6.0-8.3) g/dL Albumin (3.5-5.0) g/dL Globulin (2.4-3.5) g/dL Albumin/Globulin Ratio (1.1-2.2) Urine Color Yellow (Yellow) Urine Clarity Clear (Clear) Urine pH 6.0 (5.0-8.0) pH Units Ur Specific Wood 1.009 L (1.010-1.025) Urine Protein 30 H (Neg-Trace) mg/dL Urine Glucose (UA) Normal (Normal) mg/dL Urine Ketones Negative (Negative) mg/dL Urine Blood Negative (Negative) Urine Nitrite Negative (Negative) Urine Bilirubin Negative (Negative) Urine Urobilinogen Normal (Normal) mg/dL Ur Leukocyte Esterase Negative (Negative) Urine Microscopic RBC 0-3 (0-3) per hpf Urine Microscopic WBC 0-3 (0-3) per hpf Ur Squamous Epith Cells Many H (None-Few) per lpf Urine Bacteria None Seen (None-Few) per hpf Hyaline Casts None Seen (None-Few) per lpf Salicylates (15-30) mg/dL Urine Opiates Screen Negative (Oyvyuh=927) ng/mL Acetaminophen (10-30) mcg/mL Ur Barbiturates Screen Negative (Eblaoc=906) ng/mL Ur Phencyclidine Scrn Negative (Cutoff=25) ng/mL Ur Amphetamines Screen Negative (Nbbbdj=2659) ng/mL U Benzodiazepines Scrn Positive H (Nqypei=930) ng/mL Urine Cocaine Screen Negative (Cutoff= 300) ng/mL U Marijuana (THC) Screen Negative (Cutoff = 50) ng/mL Ethyl Alcohol (0-10) mg/dL 10/12/16 Range/Units 01:12 WBC (4.3-11.1) K/mcL RBC (3.82-4.97) M/mcL Hgb (11.5-15.4) g/dL Hct (35.3-44.9) % MCV (83.0-100.0) fL MCH (28.0-33.3) pg MCHC (31.6-35.5) g/dL RDW (11.5-14.5) % Plt Count (140-400) K/mcL MPV (9.4-12.4) fL Immature Gran % (0-4) % Seg Neutrophils % % Lymphocytes % % Monocytes % % Eosinophils % % Basophils % % Neutrophils # (1.6-8.9) K/mcL Lymphocytes # (0.6-4.6) K/mcL Monocytes # (0.0-1.3) K/mcL Eosinophils # (0.0-0.6) K/mcL Basophils # (0.0-0.2) K/mcL ABG pH (7.32-7.45) pH Units ABG pCO2 (35-45) mmHg ABG pO2 (85-104) mmHg ABG HCO3 (21-27) mEQ/L ABG Total CO2 (20-26) mEq/L ABG O2 Saturation (95-98) % ABG Base Excess (-2.0 to 3.0) mEq/L Blood Gas Modality Inspired O2 % Sodium (136-145) mEq/L Potassium (3.5-4.5) mEq/L Chloride (98-109) mEq/L Carbon Dioxide (19-29) mEq/L BUN (7-20) mg/dL Creatinine (0.57-1.11) mg/dL Est GFR ( Amer) (> 60) Est GFR (Non-Af Amer) (> 60) BUN/Creatinine Ratio (6-26) Glucose (70-99) mg/dL POC Glucose (58-89) Calculated Osmolality (280-300) Lactic Acid 2.8 H (0.5-2.2) mmol/L Calcium (8.6-10.8) mg/dL Total Bilirubin (0.2-1.2) mg/dL Direct Bilirubin (0.0-0.5) mg/dL Indirect Bilirubin (0.0-1.2) mg/dL AST (5-34) Units/L ALT (0-55) Units/L Alkaline Phosphatase (38-126) Units/L Serum Total Protein (6.0-8.3) g/dL Albumin (3.5-5.0) g/dL Globulin (2.4-3.5) g/dL Albumin/Globulin Ratio (1.1-2.2) Urine Color (Yellow) Urine Clarity (Clear) Urine pH (5.0-8.0) pH Units Ur Specific Wood (1.010-1.025) Urine Protein (Neg-Trace) mg/dL Urine Glucose (UA) (Normal) mg/dL Urine Ketones (Negative) mg/dL Urine Blood (Negative) Urine Nitrite (Negative) Urine Bilirubin (Negative) Urine Urobilinogen (Normal) mg/dL Ur Leukocyte Esterase (Negative) Urine Microscopic RBC (0-3) per hpf Urine Microscopic WBC (0-3) per hpf Ur Squamous Epith Cells (None-Few) per lpf Urine Bacteria (None-Few) per hpf Hyaline Casts (None-Few) per lpf Salicylates (15-30) mg/dL Urine Opiates Screen (Qhakhz=087) ng/mL Acetaminophen (10-30) mcg/mL Ur Barbiturates Screen (Nqhflw=969) ng/mL Ur Phencyclidine Scrn (Cutoff=25) ng/mL Ur Amphetamines Screen (Zfbqrx=5414) ng/mL U Benzodiazepines Scrn (Zghrne=904) ng/mL Urine Cocaine Screen (Cutoff= 300) ng/mL U Marijuana (THC) Screen (Cutoff = 50) ng/mL Ethyl Alcohol (0-10) mg/dL Overdose HPI - General Chief Complaint: ED Overdose Stated Complaint: "od" Time Seen by Provider: 10/11/16 22:26 Source: EMS Mode of arrival: EMS Limitations: altered mental status Nursing Notes Reviewed: Yes Vital Signs Reviewed: Yes - Related Data Allergies Allergy/AdvReac Type Severity Reaction Status Date / Time No Known Allergies Allergy Verified 10/11/16 23:08 Limitations: ROS unobtainable due to patients medical condition Past Medical History - Past Medical History Medical history: Reports: non-contributory Psychiatric history: Reports: other - Social History Smoking Status: Current every day smoker Smokeless Tobacco Status: No Alcohol use: Reports: occasionally Drug use: Reports: prescription drug abuse Physical Exam - General Limitations: altered mental status General appearance: obtunded Course Course Narrative: Patient received on signout from Dr. Cortes. Please refer to his note for complete history and physical. In brief: Patient was brought to this facility via EMS with reported ingestion of unknown quantities of Neurontin, Klonopin, Suboxone. She was somnolent, not responding to verbal stimuli, unable to answer questions, hypotensive with systolic in the 70s, and hypoxic requiring nonrebreather to maintain oxygen saturation in the mid to high 90s. After signout, patient received 2 mg Narcan IV with negligible improvement. Her blood pressure was dwindling into the systolic 60s after 1 L bolus with a second liter running. She was subsequently intubated and placed in a mild Trendelenburg position. Her systolic blood pressure transiently increased to 110 and then settled into the 80s. Urinalysis returned positive for the benzodiazepines only. Patient's blood pressure cannot see support post intubation propofol drip. As such, she was placed on a film drip given the 50 mg bolus of vecuronium-the intent was to provide sedation and paralysis until she rides in the ICU where a Precedex drip to be started in conjunction with Nila. Patient was accepted to the ICU by Dr. Gaston. Discussed the patient with the ICU night resident, Dr. Dave. He is aware the patient's blood pressure and postulated placing a central line once in the ICU. Vital Signs Temperature 97.0 F L 10/11/16 22:06 Pulse Rate 104 10/11/16 22:06 Respiratory Rate 14 10/11/16 22:06 Blood Pressure 69/47 10/11/16 22:06 O2 Sat by Pulse Oximetry 96 10/11/16 22:06 Temperature 96.9 F L 10/12/16 00:47 Pulse Rate 93 10/12/16 01:00 Respiratory Rate 12 10/12/16 01:00 Blood Pressure 96/60 10/12/16 01:00 O2 Sat by Pulse Oximetry 100 10/12/16 01:00 Oxygen Delivery Oxygen Delivery Ventilator Procedures - Intubation Time out performed: Yes sedative: Etomidate Mg Given: 20 paralytic: Succinylcholine Mg Given: 150 Laryngoscope: Jacy ET Tube Size: 7.5 ET Tube Uncuffed: Yes Tube Secured Depth (cm): 23 Tube Secured Location: lips Tube Placement Confirmation: visualized tube passing through cords, equal breath sounds bilaterally, no breath sounds over epigastrium, confirmation by capnometry Patient Tolerated Procedure: well Intubation Complications: none Additional Comments: Post intubation x-ray #1 indicated to depth proximal placed at 3 cm to deep. Tube was withdrawn 3 cm. Post intubation x-ray #2 showed appropriate placement. Critical Care Time Critical Care Time: Yes Total Critical Care Time: 40 Attestation: Critical care performed: Time is exclusive of separately billable procedures. Time includes: direct patient care, patient reassessment, coordination of patient care, interpretation of data (laboratory data, radiology data, and respiratory data), review of patient's medical records, medical consultation and documentation of patient care. Procedures included in critical care time: Procedures excluded from critical care time: Endotracheal intubation Disposition Clinical Impression: Overdose Qualifiers: Encounter type: initial encounter Injury intent: undetermined intent Qualified Code(s): T50.904A - Poisoning by unspecified drugs, medicaments and biological substances, undetermined, initial encounter Hypotension Qualifiers: Hypotension type: unspecified hypotension type Qualified Code(s): I95.9 - Hypotension, unspecified Disposition: Admitted As Inpatient Condition: Critical Time of Disposition: 01:00 Attestation Statement - Attestation Attestation: I, Erich Brown MD, personally evaluated this patient and discussed their management with the resident physician. I reviewed the resident's note and agree with the documented findings, medical decision making, and plan of care. His patient was signed out at shift change from Dr. Cortes. Please refer to his note for complete details of history and physical examination. Patient is a 47- year-old female who presented to the emergency department by ambulance after an apparent drug overdose. She was found unresponsive with pill bottles nearby for Neurontin, Klonopin, and Suboxone. On arrival here patient was unresponsive and hypotensive. On examination patient is a well-developed obese female who is unresponsive to verbal stimuli. Unable to answer questions. He pulls dilated. Breath sounds equal bilaterally. Heart regular rate and rhythm. Abdomen soft with normal bowel sounds. Patient was intubated by Dr. Wan under my supervision. No complications. After x-ray obtained the ET tube was pulled back about 2-3 cm. Chest x-ray shows some left lung infiltrates, probable aspiration. Labs reviewed. Tox screen positive for benzodiazepines. The hospitalist, Dr. Gaston, was consulted and accepted admission of the patient.
--- NOTE | 2016-10-18 15:34 | Emergency Department Note ---
Overdose - Lab Data Result diagrams: 10/13/16 04:32 10/13/16 04:32 Lab Results 10/11/16 10/11/16 10/11/16 Range/Units 23:09 23:09 23:35 WBC 12.6 H (4.3-11.1) K/mcL RBC 3.87 (3.82-4.97) M/mcL Hgb 12.7 (11.5-15.4) g/dL Hct 36.9 (35.3-44.9) % MCV 95.3 (83.0-100.0) fL MCH 32.8 (28.0-33.3) pg MCHC 34.4 (31.6-35.5) g/dL RDW 14.1 (11.5-14.5) % Plt Count 313 (140-400) K/mcL MPV 10.0 (9.4-12.4) fL Immature Gran % 0.5 (0-4) % Seg Neutrophils % 54.8 % Lymphocytes % 34.7 % Monocytes % 7.6 % Eosinophils % 1.8 % Basophils % 0.6 % Neutrophils # 6.9 (1.6-8.9) K/mcL Lymphocytes # 4.4 (0.6-4.6) K/mcL Monocytes # 1.0 (0.0-1.3) K/mcL Eosinophils # 0.2 (0.0-0.6) K/mcL Basophils # 0.1 (0.0-0.2) K/mcL ABG pH 7.30 L (7.32-7.45) pH Units ABG pCO2 52 H (35-45) mmHg ABG pO2 457 H (85-104) mmHg ABG HCO3 25.6 (21-27) mEQ/L ABG Total CO2 27.2 H (20-26) mEq/L ABG O2 Saturation 100 H (95-98) % ABG Base Excess -1.4 (-2.0 to 3.0) mEq/L Blood Gas Modality ASSIST CONTROL Inspired O2 100 % Sodium 138 (136-145) mEq/L Potassium 3.4 L (3.5-4.5) mEq/L Chloride 101 (98-109) mEq/L Carbon Dioxide 21 (19-29) mEq/L BUN 15 (7-20) mg/dL Creatinine 1.37 H (0.57-1.11) mg/dL Est GFR ( Amer) 52 L (> 60) Est GFR (Non-Af Amer) 43 L (> 60) BUN/Creatinine Ratio 11 (6-26) Glucose 137 H (70-99) mg/dL POC Glucose (58-89) Calculated Osmolality 289 (280-300) Lactic Acid (0.5-2.2) mmol/L Calcium 7.9 L (8.6-10.8) mg/dL Total Bilirubin 0.3 (0.2-1.2) mg/dL Direct Bilirubin 0.1 (0.0-0.5) mg/dL Indirect Bilirubin 0.2 (0.0-1.2) mg/dL AST 36 H (5-34) Units/L ALT 39 (0-55) Units/L Alkaline Phosphatase 106 (38-126) Units/L Serum Total Protein 6.6 (6.0-8.3) g/dL Albumin 3.3 L (3.5-5.0) g/dL Globulin 3.3 (2.4-3.5) g/dL Albumin/Globulin Ratio 1.0 L (1.1-2.2) Urine Color (Yellow) Urine Clarity (Clear) Urine pH (5.0-8.0) pH Units Ur Specific [place] (1.010-1.025) Urine Protein (Neg-Trace) mg/dL Urine Glucose (UA) (Normal) mg/dL Urine Ketones (Negative) mg/dL Urine Blood (Negative) Urine Nitrite (Negative) Urine Bilirubin (Negative) Urine Urobilinogen (Normal) mg/dL Ur Leukocyte Esterase (Negative) Urine Microscopic RBC (0-3) per hpf Urine Microscopic WBC (0-3) per hpf Ur Squamous Epith Cells (None-Few) per lpf Urine Bacteria (None-Few) per hpf Hyaline Casts (None-Few) per lpf Salicylates < 5.0 L (15-30) mg/dL Urine Opiates Screen (Aapwtp=191) ng/mL Acetaminophen 1.0 L (10-30) mcg/mL Ur Barbiturates Screen (Brycwo=878) ng/mL Ur Phencyclidine Scrn (Cutoff=25) ng/mL Ur Amphetamines Screen (Aemyue=2714) ng/mL U Benzodiazepines Scrn (Cjcnbx=145) ng/mL Urine Cocaine Screen (Cutoff= 300) ng/mL U Marijuana (THC) Screen (Cutoff = 50) ng/mL Ethyl Alcohol 44 H (0-10) mg/dL 10/11/16 10/11/16 10/12/16 Range/Units 23:43 23:43 00:39 WBC (4.3-11.1) K/mcL RBC (3.82-4.97) M/mcL Hgb (11.5-15.4) g/dL Hct (35.3-44.9) % MCV (83.0-100.0) fL MCH (28.0-33.3) pg MCHC (31.6-35.5) g/dL RDW (11.5-14.5) % Plt Count (140-400) K/mcL MPV (9.4-12.4) fL Immature Gran % (0-4) % Seg Neutrophils % % Lymphocytes % % Monocytes % % Eosinophils % % Basophils % % Neutrophils # (1.6-8.9) K/mcL Lymphocytes # (0.6-4.6) K/mcL Monocytes # (0.0-1.3) K/mcL Eosinophils # (0.0-0.6) K/mcL Basophils # (0.0-0.2) K/mcL ABG pH (7.32-7.45) pH Units ABG pCO2 (35-45) mmHg ABG pO2 (85-104) mmHg ABG HCO3 (21-27) mEQ/L ABG Total CO2 (20-26) mEq/L ABG O2 Saturation (95-98) % ABG Base Excess (-2.0 to 3.0) mEq/L Blood Gas Modality Inspired O2 % Sodium (136-145) mEq/L Potassium (3.5-4.5) mEq/L Chloride (98-109) mEq/L Carbon Dioxide (19-29) mEq/L BUN (7-20) mg/dL Creatinine (0.57-1.11) mg/dL Est GFR ( Amer) (> 60) Est GFR (Non-Af Amer) (> 60) BUN/Creatinine Ratio (6-26) Glucose (70-99) mg/dL POC Glucose 107 H (58-89) Calculated Osmolality (280-300) Lactic Acid (0.5-2.2) mmol/L Calcium (8.6-10.8) mg/dL Total Bilirubin (0.2-1.2) mg/dL Direct Bilirubin (0.0-0.5) mg/dL Indirect Bilirubin (0.0-1.2) mg/dL AST (5-34) Units/L ALT (0-55) Units/L Alkaline Phosphatase (38-126) Units/L Serum Total Protein (6.0-8.3) g/dL Albumin (3.5-5.0) g/dL Globulin (2.4-3.5) g/dL Albumin/Globulin Ratio (1.1-2.2) Urine Color Yellow (Yellow) Urine Clarity Clear (Clear) Urine pH 6.0 (5.0-8.0) pH Units Ur Specific [place] 1.009 L (1.010-1.025) Urine Protein 30 H (Neg-Trace) mg/dL Urine Glucose (UA) Normal (Normal) mg/dL Urine Ketones Negative (Negative) mg/dL Urine Blood Negative (Negative) Urine Nitrite Negative (Negative) Urine Bilirubin Negative (Negative) Urine Urobilinogen Normal (Normal) mg/dL Ur Leukocyte Esterase Negative (Negative) Urine Microscopic RBC 0-3 (0-3) per hpf Urine Microscopic WBC 0-3 (0-3) per hpf Ur Squamous Epith Cells Many H (None-Few) per lpf Urine Bacteria None Seen (None-Few) per hpf Hyaline Casts None Seen (None-Few) per lpf Salicylates (15-30) mg/dL Urine Opiates Screen Negative (Cqfcqi=881) ng/mL Acetaminophen (10-30) mcg/mL Ur Barbiturates Screen Negative (Dhxwii=021) ng/mL Ur Phencyclidine Scrn Negative (Cutoff=25) ng/mL Ur Amphetamines Screen Negative (Kashga=1605) ng/mL U Benzodiazepines Scrn Positive H (Bjntki=437) ng/mL Urine Cocaine Screen Negative (Cutoff= 300) ng/mL U Marijuana (THC) Screen Negative (Cutoff = 50) ng/mL Ethyl Alcohol (0-10) mg/dL 10/12/16 Range/Units 01:12 WBC (4.3-11.1) K/mcL RBC (3.82-4.97) M/mcL Hgb (11.5-15.4) g/dL Hct (35.3-44.9) % MCV (83.0-100.0) fL MCH (28.0-33.3) pg MCHC (31.6-35.5) g/dL RDW (11.5-14.5) % Plt Count (140-400) K/mcL MPV (9.4-12.4) fL Immature Gran % (0-4) % Seg Neutrophils % % Lymphocytes % % Monocytes % % Eosinophils % % Basophils % % Neutrophils # (1.6-8.9) K/mcL Lymphocytes # (0.6-4.6) K/mcL Monocytes # (0.0-1.3) K/mcL Eosinophils # (0.0-0.6) K/mcL Basophils # (0.0-0.2) K/mcL ABG pH (7.32-7.45) pH Units ABG pCO2 (35-45) mmHg ABG pO2 (85-104) mmHg ABG HCO3 (21-27) mEQ/L ABG Total CO2 (20-26) mEq/L ABG O2 Saturation (95-98) % ABG Base Excess (-2.0 to 3.0) mEq/L Blood Gas Modality Inspired O2 % Sodium (136-145) mEq/L Potassium (3.5-4.5) mEq/L Chloride (98-109) mEq/L Carbon Dioxide (19-29) mEq/L BUN (7-20) mg/dL Creatinine (0.57-1.11) mg/dL Est GFR ( Amer) (> 60) Est GFR (Non-Af Amer) (> 60) BUN/Creatinine Ratio (6-26) Glucose (70-99) mg/dL POC Glucose (58-89) Calculated Osmolality (280-300) Lactic Acid 2.8 H (0.5-2.2) mmol/L Calcium (8.6-10.8) mg/dL Total Bilirubin (0.2-1.2) mg/dL Direct Bilirubin (0.0-0.5) mg/dL Indirect Bilirubin (0.0-1.2) mg/dL AST (5-34) Units/L ALT (0-55) Units/L Alkaline Phosphatase (38-126) Units/L Serum Total Protein (6.0-8.3) g/dL Albumin (3.5-5.0) g/dL Globulin (2.4-3.5) g/dL Albumin/Globulin Ratio (1.1-2.2) Urine Color (Yellow) Urine Clarity (Clear) Urine pH (5.0-8.0) pH Units Ur Specific [place] (1.010-1.025) Urine Protein (Neg-Trace) mg/dL Urine Glucose (UA) (Normal) mg/dL Urine Ketones (Negative) mg/dL Urine Blood (Negative) Urine Nitrite (Negative) Urine Bilirubin (Negative) Urine Urobilinogen (Normal) mg/dL Ur Leukocyte Esterase (Negative) Urine Microscopic RBC (0-3) per hpf Urine Microscopic WBC (0-3) per hpf Ur Squamous Epith Cells (None-Few) per lpf Urine Bacteria (None-Few) per hpf Hyaline Casts (None-Few) per lpf Salicylates (15-30) mg/dL Urine Opiates Screen (Zueuiq=745) ng/mL Acetaminophen (10-30) mcg/mL Ur Barbiturates Screen (Ujviib=930) ng/mL Ur Phencyclidine Scrn (Cutoff=25) ng/mL Ur Amphetamines Screen (Elfqfk=2488) ng/mL U Benzodiazepines Scrn (Thhafh=689) ng/mL Urine Cocaine Screen (Cutoff= 300) ng/mL U Marijuana (THC) Screen (Cutoff = 50) ng/mL Ethyl Alcohol (0-10) mg/dL Overdose HPI - General Chief Complaint: ED Overdose Stated Complaint: OD Time Seen by Provider: 10/11/16 22:26 Source: EMS Mode of arrival: EMS Limitations: altered mental status Nursing Notes Reviewed: Yes Vital Signs Reviewed: Yes - History of Present Illness HPI Narrative: 47-year-old comes in via squad basically unresponsive apparently overdosed on Suboxone possibly Neurontin possibly a benzodiazepine. Patient on arrival has a pressure of about 60 and is unresponsive was given Narcan initially without improvement. Onset (ago): Just [employer] HOSPICE Intent: unknown - Related Data Home Medications Medication Instructions Recorded Confirmed Amitriptyline [Elavil] 100 mg PO HS 09/06/16 10/12/16 Buprenorphine HCl [Subutex] 16 mg SL DAILY 09/06/16 09/06/16 Gabapentin [Neurontin] 800 mg PO TID 09/06/16 10/12/16 Lisinopril [Zestril] 20 mg PO DAILY 09/06/16 10/12/16 Omeprazole [PriLOSEC] 20 mg PO DAILY 09/06/16 10/12/16 Zolpidem [Ambien] 10 mg PO HS 09/06/16 09/06/16 metFORMIN [Glucophage] 500 mg PO HS 09/06/16 10/12/16 Cholecalciferol (D-3) [Vitamin D] 1,000 unit PO DAILY 10/12/16 DULoxetine [Cymbalta] 90 mg PO DAILY 10/12/16 10/12/16 clonazePAM [Klonopin] 2 mg PO TID PRN 10/12/16 10/12/16 Previous Rx's Medication Instructions Recorded Levothyroxine [Synthroid] 50 mcg PO 0630 tablet 09/12/16 Nicotine Patch [Nicoderm] 21 mg TD DAILY #14 patch.[id number] 10/13/16 Allergies Allergy/AdvReac Type Severity Reaction Status Date / Time hydrocodone Allergy Hives Verified 04/17/16 11:51 Penicillins [PCN] Allergy Hives Verified 06/18/15 13:18 Limitations: ROS unobtainable due to patients medical condition Past Medical History - Past Medical History Medical history: Reports: diabetes, fibromyalgia, hypertension, migraine, RA, renal disease, seizures, thyroid disease Surgical history: Reports: other (Unable to obtain due to mental status) Psychiatric history: Reports: anxiety, bipolar, PTSD, prior suicide attempt, previous psychiatric hospitalization - Social History Smoking Status: Current every day smoker Smokeless Tobacco Status: No Alcohol use: Reports: none Drug use: Reports: marijuana Physical Exam - General Limitations: altered mental status General appearance: obtunded - Head Head exam: atraumatic, normocephalic, normal inspection - Eye Eye exam: Present: PERRL - ENT ENT exam: mucous membranes moist - Neck Neck exam: Present: normal inspection - Respiratory Respiratory exam: Present: normal lung sounds bilaterally - Cardiovascular Cardiovascular exam: Present: regular rate, normal rhythm, normal heart sounds - Abdominal Exam Abdominal exam: Present: soft, Non-Tender. Absent: tenderness, distention, guarding, rebound, rigidity - Extremities Exam Extremities exam: Present: normal inspection, full ROM. Absent: tenderness, pedal edema - Expanded Lower Extremity Exam Neurovascular/Tendon exam: Absent: motor deficit, sensory deficit, tendon deficit Gait: not tested/not observed - Back Exam Back exam: Present: normal inspection - Neurological Exam Neurological exam: Present: other (Unresponsive her Pedro Coma Scale is 3.) - Skin Skin exam: Present: warm, dry Course - Reevaluation(s) Reevaluation #1: The patient's pressure was in the 60s. 2 large-bore IVs were established patient was given 2 L of fluid patient was moved to room 3 and the patient was intubated to protect her airway see the resident's note. The patient's pressures currently at 90. Patient was turned over to shift mgr. Time: 23:11 Vital Signs Temperature 97 F L 10/11/16 22:06 Pulse Rate 104 10/11/16 22:06 Respiratory Rate 14 10/11/16 22:06 Blood Pressure 69/47 10/11/16 22:06 O2 Sat by Pulse Oximetry 96 10/11/16 22:06 Temperature 98.3 F 10/13/16 15:11 Pulse Rate 83 10/13/16 15:11 Respiratory Rate 16 10/13/16 15:11 Blood Pressure 135/95 10/13/16 15:11 O2 Sat by Pulse Oximetry 99 10/13/16 15:11 Oxygen Delivery Oxygen Delivery Ambu Bag Disposition Clinical Impression: Overdose Qualifiers: Encounter type: initial encounter Injury intent: undetermined intent Qualified Code(s): T50.904A - Poisoning by unspecified drugs, medicaments and biological substances, undetermined, initial encounter Hypotension Qualifiers: Hypotension type: unspecified hypotension type Qualified Code(s): I95.9 - Hypotension, unspecified Disposition: Still a Patient Condition: Critical S.B.A.R. - S.B.A.R. Recommendation: Recommendation based on pending studies, treatments, or consults S.B.A.R. Report Given to: Dr. Brown S.B.AJesus Repor Time: 23:00
== END 2016-10-13 17:30 | disposition home or self-care (01) | DRG 812 ==
LOC: EMEROO 22:23 → SUATTDRO 10-12 01:30 → ICNU 10-12 01:30 → 3ANU 10-12 15:44
PROVIDERS: ADMIT Internal Medicine; ATTEND Internal Medicine